=== PATIENT | male | born 1950 | race Caucasian/White ===

== ENCOUNTER → 2017-06-24 | Outpatient (CLI) | payer BC ==
[~2017-06-24] MED LIST: [UNRECOGNIZED DRUG - CODE] PO
[2017-06-24 12:04] LABS: BASO % 0.2 %; BASO ABS # 0.02 K/uL (0-0.2); COMPLETE YES; EOS % 3.2 %; IG% 0.1 %; LYMPH % 36.5 %; LYMPH ABS # 3.07 K/uL (1.2-3.4); MEAN CELL VOLUME 88.4 fL (80-100); MEAN CORPUSCULAR HEMOGLOBIN 30.5 pg (25-34); MEAN CORPUSCULAR HGB CONC 34.5 g/dl (32-36); MEAN PLATELET VOLUME 11.5 fL (7.4-10.4); MONO % 11.1 %; NEUT % 48.9 %; PLATELET COUNT 192 K/uL (130-400); RED BLOOD COUNT 5.54 M/uL (4.7-6.1)
[2017-06-24 12:25] LABS: BLOOD UREA NITROGEN 10 mg/dl (7-18); CREATININE 0.65 mg/dl (0.60-1.40); GLUCOSE 126 mg/dl (70-99)
[2017-06-24 12:26] LABS: ALT/SGPT 26 U/L (12-78); BUN/CREATININE RATIO 15.8 (10-20); CALCIUM 9.1 mg/dl (8.5-10.1); CARBON DIOXIDE 26 mmol/L (21-32); CHLORIDE 109 mmol/L (98-107); POTASSIUM 3.9 mmol/L (3.5-5.1); SODIUM 141 mmol/L (136-145)
[2017-06-24 12:36] LABS: ALB/GLOB RATIO 1.1 (0.9-2); ALKALINE PHOSPHATASE 98 U/L (45-117); AST/SGOT 17 U/L (15-37); THYROID STIMULATING HORMONE 0.712 uIu/ml (0.300-4.500)
== END | disposition home or self-care (01) ==
LOC: C.LABBFT 10:14
PROVIDERS: ATTEND Internal Medicine
DX: R03.0 Elevated blood-pressure reading, without diagnosis of hypertension (principal)

== ENCOUNTER 2020-02-27 07:24 | Inpatient (IN) ==
--- NOTE | 2020-02-27 07:43 | Emergency Department Note ---
History of Present Illness General Chief complaint: Kidney Stone Stated complaint: KIDNEY STONE Time Seen by Provider: 02/27/20 07:31 History of Present Illness Maximum Pain Intensity: 2 This is a 69-year-old male with a past medical history significant for that of kidney stones as well as type 2 diabetes that presents to the emergency department via private vehicle with complaints of "kidney stone". Patient states that for the past 2 days he has had right-sided flank pain. This then seemed to dissipate and this morning he drank a lot of water and coffee and notes that he feels as though he has to urinate but only a few drops are able to be expressed. He states that he has had similar in the past with previous kidney stones. He has followed previously with Dr. Lerner of [facility] urology. He denies any current pain, fevers, chills or abdominal pain. He was hopeful that he would be able to pass the stone this morning with excessive hydration but unfortunate was able to do so. He does feel slightly uncomfortable secondary to the amount of fluids that he consumed and lack of urine output and rates his discomfort as a 2/10. No hematuria. Home Medications Home Medications Medication Instructions Recorded Confirmed Type blood-glucose meter #1 ea 05/28/19 10/19/19 Rx lancets 33 gauge #100 ea 05/28/19 10/19/19 Rx blood sugar diagnostic #200 ea 07/13/19 10/19/19 Rx glimepiride 2 mg tablet 2 mg PO QAM #90 tab 01/07/20 02/27/20 Rx metformin 1,000 mg PO BIDM 02/27/20 02/27/20 History propranolol 120 mg PO QAM 02/27/20 02/27/20 History Allergies Allergy/AdvReac Type Severity Reaction Status Date / Time No Known Allergies Allergy Unknown Verified 02/27/20 08:23 Past Med/Surg History Family History Father Kidney stone Other Diabetes Denies family history of Ovarian cancer Prostate cancer Breast cancer Colorectal cancer Social History Preferred Language: Chinese Communication Ability: Effective Visual Impairment: No Limitations Hearing Ability: Normal Virologist Required: No Beliefs That Will Affect Care: None marital status: Current Living Situation: Spouse current occupational status: retired Feels Safe at Home: Yes Smoking Status: Current every day smoker Tobacco Type: cigarettes ; Hx Alcohol Use: Yes Alcohol type: beer Hx Substance Use: No Physical Activity Frequency: 1-2 Times per Week Review of Systems A total of 10 systems reviewed and were otherwise negative Physical Exam Vital Signs Vital Signs - 24 hr 02/27/20 07:25 02/27/20 09:25 Temperature 36.9 C Temperature Source Oral Pulse Rate 95 H Pulse Rate [Finger] 89 Pulse Rhythm [Finger] Regular Pulse Strength [Finger] Normal Respiratory Rate 18 18 Respiratory Effort / Characteristics Non-Labored Non-Labored Spontaneous Respiratory Depth Normal Normal Respiratory Pattern Regular Blood Pressure 165/88 H Blood Pressure [Right Arm] 137/86 Blood Pressure Mean 113 Blood Pressure Mean [Right Arm] 103 Blood Pressure Position Sitting Blood Pressure Position [Right Arm] Lying Pulse Oximetry 96 98 Oxygen Delivery Method Room Air Room Air Sepsis Recent Fever Within 48 Hours No Sepsis New/Unexplained Change in Mental Status No Sepsis Action Taken by Nursing No Action Required VITAL SIGNS - Vital signs and nursing notes were reviewed. Stable and afebrile. GENERAL - 69-year-old male appearing his stated age who is in no acute distress. Communicates well with provider and answers questions appropriately. SKIN - Without rashes. No meningeal or petechial rash. HEAD - NC/AT. EYES - PERRL with EOMI bilaterally. Sclera anicteric. EARS - No deformities of external structures noted on gross examination bilaterally. NOSE - Midline and without cyanosis. No epistaxis or purulent drainage noted. MOUTH/OROPHARYNX - Without perioral cyanosis. NECK - Neck with FROM. LUNGS - Chest wall symmetric without accessory muscle use, intercostals retractions, or central cyanosis. Normal vesicular breath sounds CTA B/L. No wheezes, rales, or rhonchi appreciated. CARDIAC - RRR with S1/S2. No murmur, rubs, or gallops appreciated. ABDOMEN - Abdominal contour normal without pulsations or visible masses. BS normoactive all four quadrants. No tenderness, palpable masses, hepatosplenomegaly, or ascites noted. EXTREMITIES - No clubbing or peripheral cyanosis. No pretibial edema present. +5/5 strength noted in UE/LE bilaterally. NEUROLOGIC - Cranial nerves II through XII grossly intact. Sensory intact to light touch throughout. PSYCH - A&O, and cooperates fully with examiner. Pt is very pleasant and interacts well with examiner. Course Administered Medications Sodium Chloride (Nss 1000ml) 1,000 mls @ 150 mls/hr IV .[id number] [facility] Stop: 03/28/20 13:09 Last Admin: 02/27/20 13:27 Dose: 150 mls/hr Documented by: [id number] Insulin Aspart (Novolog Flexpen) 0 units SC ACHS JOHN Stop: 03/28/20 13:29 Last Admin: 02/27/20 14:37 Dose: Not Given Documented by: [id number] Cosigned by: [id number] Discontinued Medications Heparin Sodium (Porcine) (Heparin Sodium (Porcine)) 5,000 units SQ ONE ONE Stop: 02/27/20 13:46 Last Admin: 02/27/20 14:36 Dose: 5,000 units Documented by: [id number] Cosigned by: [id number] Medical Decision Making Laboratory Data Result diagrams: 02/27/20 07:46 02/27/20 07:46 Lab Results 02/27/20 02/27/20 02/27/20 Range/Units 07:46 07:46 08:06 WBC 9.90 (4.8-10.8) K/uL RBC 5.66 (4.7-6.1) M/uL Hgb 17.3 (14.0-18.0) g/dL Hct 51.0 (42-52) % MCV 90.1 (80-100) fL MCH 30.6 (25-34) pg MCHC 33.9 (32-36) g/dL RDW Std Deviation 47.7 H (36.4-46.3) fL RDW Coeff of Taylor 14.4 (11.5-14.5) % Plt Count 182 (130-400) K/uL MPV 11.1 H (7.4-10.4) fL Immature Gran % (Auto) 0.3 % Neut % (Auto) 73.9 % Lymph % (Auto) 16.0 % [place] % (Auto) 7.9 % Eos % (Auto) 1.6 % Baso % (Auto) 0.3 % Neut # (Auto) 7.32 H (1.4-6.5) K/uL Lymph # (Auto) 1.58 (1.2-3.4) K/uL [place] # (Auto) 0.78 H (0.11-0.59) K/uL Eos # (Auto) 0.16 (0-0.5) K/uL Baso # (Auto) 0.03 (0-0.2) K/uL Immature Gran # (Auto) 0.03 H (0.00-0.02) K/uL Sodium 140 (136-145) mmol/L Potassium 4.0 (3.5-5.1) mmol/L Chloride 107 (98-107) mmol/L Carbon Dioxide 25 (21-32) mmol/L Anion Gap 8.0 (3-11) BUN 13 (7-18) mg/dl Creatinine 0.94 (0.6-1.4) mg/dl Est Cr Clr Drug Dosing 98.1 ml/min Est GFR ( Amer) 96.2 Est GFR (Non-Af Amer) 83.0 BUN/Creatinine Ratio 13.4 (10-20) Glucose 142 H (70-99) mg/dl Calcium 9.8 (8.5-10.1) mg/dl Total Bilirubin 0.5 (0.2-1) mg/dl AST 8 L (15-37) U/L ALT 21 (12-78) U/L Alkaline Phosphatase 103 (45-117) U/L Total Protein 7.2 (6.4-8.2) gm/dl Albumin 3.4 (3.4-5.0) gm/dl Globulin 3.8 (2.5-4.0) gm/dl Albumin/Globulin Ratio 0.9 (0.9-2) Urine Color Yellow Urine Appearance Clear (Clear) Urine pH 5.5 (4.5-7.5) Ur Specific [place] 1.017 (1.000-1.030) Urine Protein Negative (Negative) Urine Glucose (UA) Negative (Negative) Urine Ketones Negative (Negative) Urine Blood 3+ H (Negative) Urine Nitrite Negative (Negative) Urine Bilirubin Negative (Negative) Urine Urobilinogen Negative (Negative) Ur Leukocyte Esterase Trace H (Negative) Urine WBC (Auto) 1-5 (0-5) /hpf Urine RBC (Auto) >30 H (0-4) /hpf U Hyaline Cast (Auto) 1-5 (0-5) /lpf U Epithel Cells (Auto) 5-10 H (0-5) /lpf Urine Bacteria (Auto) Negative (Negative) Imaging Data Radiologist's Impression: CT OF THE ABDOMEN AND PELVIS WITHOUT CONTRAST CLINICAL HISTORY: R flank pain, urinary urgency, minimal output COMPARISON STUDY: CT of the abdomen and pelvis May 04, 2014. TECHNIQUE: Axial images of the abdomen and pelvis were obtained without IV contrast. Images were reviewed in the axial, sagittal, and coronal planes. Automated exposure control was utilized for the study. A dose lowering technique was utilized adhering to the principles of ALARA. FINDINGS: Lung bases are unremarkable. A 1.2 x 1 cm right ureteropelvic junction calculus is noted. There is a additional 4 mm right ureteropelvic junction calculus located just distally. Moderate right hydronephrosis is noted. Numerous bilateral renal calculi are noted. The largest is a 1.3 cm calculus within lower pole of the left kidney. There are no left ureteral calculi. There is no left hydronephrosis. Note is made of a 3.2 cm lesion arising from the upper pole the right kidney on image 245 of [phone]. Peripherally, this lesion measures above water attenuation and is highly suggestive of a solid renal lesion. Additional bilateral renal lesions measure water attenuation and favor cysts, including a lesion which contains calcifications within the midpole of the right kidney. This favors a cyst. Evaluation of the remainder of the abdomen and pelvis is suboptimal as unenhanced examination. Subcentimeter hepatic lesions favor cysts. There are gallstones within the gallbladder without evidence for acute cholecystitis. The spleen, adrenal glands and pancreas are unremarkable. There is no biliary or pancreatic ductal dilatation. There is no evidence for a bowel obstruction. No lymphadenopathy is present. The appendix is normal. There are no suspicious osseous lesions. IMPRESSION: 1. 1.2 x 1 cm right ureteropelvic junction calculus which results in moderate right hydronephrosis. Adjacent 4 mm calculus. Extensive bilateral nephrolithiasis. 2. 3.2 cm lesion arising from the upper pole of the right kidney. This is suboptimally assessed on this unenhanced exam but is highly suggestive of renal cell carcinoma. Nonemergent renal protocol MRI is recommended. Findings discussed with Elbert Cuevas at time of dictation. ACT 112: Positive. There are findings on this exam that require communication between the performing entity and the patient following Patient Test Result Information Act ([place] Act 112) guidelines. Electronically signed by: Jonathan Oconnell M.D. 02/27/2020 9:04 AM MDM Narrative Patient was seen and evaluated as above in room A02. Review was performed of nursing notes and vital signs. I did review pertinent previous visits and patient history. After obtaining a thorough history and physical examination the above work up was performed. He presents to us today with what he believes is a kidney stone. He states that he had right-sided flank pain x2 days which is typical with his kidney stones and then felt as though it may be entered the bladder but is now obstructing urine flowing from the bladder as he notes that he was well-hydrated this morning but only is able to produce a very small amount of urine. He feels mild discomfort in the bladder region secondary to the hydration status with inability to completely empty her bladder. He states that he has passed about a dozen kidney stones in the past 5 years. He denies any fevers or chills. He is hemodynamically stable here. Patient did undergo bladder scanning as I was at the bedside observing this and at no point did register anything greater than about 30 mL's. Patient notes he did just urinate prior to the scan however he felt it was an incomplete emptying of the bladder. Decision was made to pursue with a CT scan given the presentation and the patient's history. CBC does not reveal any leukocytosis or anemia. No evidence of kidney or liver failure emergently. Urinalysis does not suggest infection. Given the size of the stone, hydronephrosis, it was felt that urology consult was warranted. I spoke with Dina Pearce and she discussed this with Dr. Valerio of urology. Recommendation was inpatient management which patient was amenable to. Given his other medical comorbidities I did discuss the case with the hospitalist service. Please refer to further documentation regarding his stay. Patient declined pain medication here in the department. In regard to the abnormal CT scan finding reviewing the 3.2 cm lesion I did inform the patient upon this and provided him a copy of the CT scan report. I will also note that he will be evaluated by urology team while here in the hospital. Case was discussed with the attending physician. I attest that I have personally reviewed the patient medication list. I attest that I have reviewed the patient's blood pressure and it was found to be elevated likely secondary to presentation here today. GCS: 15 In the evaluation and treatment of this patient the following differential diagnoses were entertained: [] Impression & Plan Ureteropelvic junction (UPJ) obstruction, right, Hydronephrosis, Renal lesion Discharge Plan Visit Data *Final* Discharge Date/Time: 02/27/20 12:46 Chief Complaint: Kidney Stone Stated Complaint: KIDNEY STONE ED Provider: Shree Prasad ED Midlevel Provider: Elbert Cuevas Discharge Problem: Ureteropelvic junction (UPJ) obstruction, right, Hydronephrosis, Renal lesion Patient Disposition: Admitted As Inpatient Condition: Good Discharge Instructions Interventions: ED Discharge Assessment Last Done: 02/27/20 12:46
[2020-02-27 07:56] LABS: Basophils # (auto) 0.03 K/uL (0-0.2); Basophils % (auto) 0.3 %; Eosinophils # (auto) 0.16 K/uL (0-0.5); Eosinophils % (auto) 1.6 %; Hemoglobin 17.3 g/dL (14.0-18.0); Immature Granulocytes # (auto) 0.03 K/uL (0.00-0.02); Immature Granulocytes % (auto) 0.3 %; Lymphocytes # (auto) 1.58 K/uL (1.2-3.4); Mean Corpuscular Hemoglobin 30.6 pg (25-34); Mean Corpuscular Hgb Conc 33.9 g/dL (32-36); Mean Corpuscular Volume 90.1 fL (80-100); Mean Platelet Volume 11.1 fL (7.4-10.4); Monocytes # (auto) 0.78 K/uL (0.11-0.59); Monocytes % (auto) 7.9 %; Neutrophils # (auto) 7.32 K/uL (1.4-6.5); Neutrophils % (auto) 73.9 %; Platelet Count 182 K/uL (130-400); RDW Coefficient of Variation 14.4 % (11.5-14.5); RDW Standard Deviation 47.7 fL (36.4-46.3); Red Blood Count 5.66 M/uL (4.7-6.1)
[2020-02-27 08:37] LABS: Albumin Level 3.4 gm/dl (3.4-5.0); BUN Creatinine Ratio 13.4 (10-20); Calcium 9.8 mg/dl (8.5-10.1); Creatinine Clr Calc Pharmacy 98.1 ml/min; Est GFR (African American) 96.2
[2020-02-27 08:40] LABS: Albumin Globulin Ratio 0.9 (0.9-2); Bilirubin,Total 0.5 mg/dl (0.2-1); Globulin 3.8 gm/dl (2.5-4.0); Total Protein 7.2 gm/dl (6.4-8.2)
[2020-02-27 08:53] LABS: Appearance Urine Clear (Clear); Bacteria Urine Automated Negative (Negative); Bilirubin Urine Negative (Negative); Blood Urine 3+ (Negative); Color Urine Yellow; Glucose Urine UA Negative (Negative); Ketones Urine Negative (Negative); Leukocyte Esterase Urine Trace (Negative); Nitrite Urine Negative (Negative); Protein Urine Negative (Negative); RBC Urine Automated >30 /hpf (0-4); Specific Gravity Urine 1.017 (1.000-1.030); Urobilinogen Urine Negative (Negative); pH Urine 5.5 (4.5-7.5)
--- NOTE | 2020-02-27 09:05 | CT Scan Report ---
CT OF THE ABDOMEN AND PELVIS WITHOUT CONTRAST CLINICAL HISTORY: R flank pain, urinary urgency, minimal output COMPARISON STUDY: CT of the abdomen and pelvis May 04, 2014. TECHNIQUE: Axial images of the abdomen and pelvis were obtained without IV contrast. Images were revi ewed in the axial, sagittal, and coronal planes. Automated exposure control was utilized for the darleen dy. A dose lowering technique was utilized adhering to the principles of ALARA. FINDINGS: Lung bases are unremarkable. A 1.2 x 1 cm right ureteropelvic junction calculus is noted. T here is a additional 4 mm right ureteropelvic junction calculus located just distally. Moderate right hydronephrosis is noted. Numerous bilateral renal calculi are noted. The largest is a 1.3 cm calculu s within lower pole of the left kidney. There are no left ureteral calculi. There is no left hydronep hrosis. Note is made of a 3.2 cm lesion arising from the upper pole the right kidney on image 245 of 596. Peripherally, this lesion measures above water attenuation and is highly suggestive of a solid r enal lesion. Additional bilateral renal lesions measure water attenuation and favor cysts, including a lesion which contains calcifications within the midpole of the right kidney. This favors a cyst. Ev aluation of the remainder of the abdomen and pelvis is suboptimal as unenhanced examination. Subcenti meter hepatic lesions favor cysts. There are gallstones within the gallbladder without evidence for a cute cholecystitis. The spleen, adrenal glands and pancreas are unremarkable. There is no biliary or pancreatic ductal dilatation. There is no evidence for a bowel obstruction. No lymphadenopathy is pre sent. The appendix is normal. There are no suspicious osseous lesions. IMPRESSION: 1. 1.2 x 1 cm right ureteropelvic junction calculus which results in moderate right hydronephrosis. A djacent 4 mm calculus. Extensive bilateral nephrolithiasis. 2. 3.2 cm lesion arising from the upper pole of the right kidney. This is suboptimally assessed on th is unenhanced exam but is highly suggestive of renal cell carcinoma. Nonemergent renal protocol MRI i s recommended. Findings discussed with Elbert Cuevas at time of dictation. ACT 112: Positive. There are findings on this exam that require communication between the performing entity and the patient following Patient Test Result Information Act ([place] Act 112) guidelines. Electronically signed by: Jonathan Oconnell M.D. 02/27/2020 9:04 AM
--- NOTE | 2020-02-27 11:22 | History & Physical Report ---
Date of Service February 27, 2020 Assessment & Plan (1) Renal stone: Patient has a right UPJ stone 10 x 12 mm. Patient is no evidence of renal dysfunction the creatinine is 0.94. Urology has been consulted. Pain medication with opiates and nonsteroidals will be given IV fluids will be given and straining of urine to be recommended. (2) Renal mass: Renal mass on the right side. Patient studies will he was aware of a renal cyst on the right side. Urine cytology will be sent urology consult be undertaken and renal dedicated MRI is ordered (3) Diabetes mellitus type 2, uncontrolled: Patient typically takes glimepiride and metformin. Metformin is held insulin sliding scale is utilized and carbohydrate conservative diet ordered (4) Benign essential hypertension: Patient remains on propranolol XL 120 a day (5) DVT prophylaxis: For DVT prophylaxis the patient given 1 dose of heparin this evening then will be held given that he likely may have renal intervention. If he is here for prolonged stay DVT prophylaxis and chemical formalin need to be reordered. He will additionally be ordered SCDs History of Present Illness Primary Care Provider: Rex Stewart MD 69 M with a past medical history significant for multiple kidney stones as well as recently diagnosed (follow 2019) type 2 diabetes that presents to the emergency department via private vehicle with complaints of "kidney stone". Patient states that for the past 2 days he has had right-sided flank pain. Subsequently the patient drank a lot of water and coffee and feels the stone has moved. He feels in his bladder however on imaging is suggested at the UPJ and 10 x 12 mm. He has followed previously with Dr. Lerner of [facility] urology. And in the past he also has been told he had a right renal cyst. He currently denies any current pain, fevers, chills or abdominal pain. He was hopeful that he would be able to pass the stone this morning with excessive hydration but unfortunate was able to do so. He does feel slightly uncomfortable secondary to the amount of fluids that he consumed and feeling that he cannot empty his bladder completely. Patient denies having hematuria. Patient was not informed of the incidental renal mass seen in the right kidney on CT scan measuring 3.2 cm with recommendation for further imaging which is been ordered Allergies Allergy/AdvReac Type Severity Reaction Status Date / Time No Known Allergies Allergy Unknown Verified 02/27/20 08:23 Home Medications Home Medications Medication Instructions Recorded Confirmed Type blood-glucose meter #1 ea 05/28/19 10/19/19 Rx lancets 33 gauge #100 ea 05/28/19 10/19/19 Rx blood sugar diagnostic #200 ea 07/13/19 10/19/19 Rx glimepiride 2 mg tablet 2 mg PO QAM #90 tab 01/07/20 02/27/20 Rx metformin 1,000 mg PO BIDM 02/27/20 02/27/20 History propranolol 120 mg PO QAM 02/27/20 02/27/20 History Past Med/Surg History Family History Father Kidney stone Other Diabetes Denies family history of Ovarian cancer Prostate cancer Breast cancer Colorectal cancer Social History Preferred Language: Zimbabwean Visual Impairment: No Limitations Hearing Ability: Normal marital status: Current Living Situation: Spouse current occupational status: retired Feels Safe at Home: Yes Smoking Status: Current every day smoker Hx Alcohol Use: Yes Hx Substance Use: No Physical Activity Frequency: 1-2 Times per Week Review of Systems Review of Systems: Mild distress and fatigue no headache, blurry or double vision no speech or swallowing issues no chest pain, pressure or palpitations no shortness of breath, cough or wheezes Right-sided abdominal pain, without nausea or vomiting, diarrhea or constipation Urinary frequency but no hematuria no focal joint pain or swelling Right-sided back pain/CVA tenderness no evidence of radicular pain no bruising, bleeding or rashes no focal signs of weakness or numbness or altered sensation no complaints or anxiety or depression. Physical Exam Physical Exam: The patient appeared well nourished and normally developed. His exam is without remark Vital signs as documented. Head exam is normocephalic atraumatic no scleral icterus Neck is without JVD, thyromegaly, or carotid bruits. Lungs are clear to auscultation, no focal loss of breath sounds Cardiac exam, Rhythm is regular.. No murmurs, rubs or gallops. Abdominal exam reveals normal bowel sounds, soft non tender, no masses Extremities are nonedematous and both pedal pulses are normal. Neurologic exam is alert and oriented, no focal loss of strength or sensation Skin is without bruises or rashes Psychologically is without concerns for anxiety or depression Results & Data Results & Data ([facility]) Vital Signs (Past 12 Hours) Vital Signs Temp Pulse Pulse Resp BP BP Pulse Ox 02/27/20 09:25 89 18 137/86 98 02/27/20 07:25 98.4 F 95 H 18 165/[address] 02/27/20, IMPRESSION: 1. 1.2 x 1 cm right ureteropelvic junction calculus which results in moderate right hydronephrosis. Adjacent 4 mm calculus. Extensive bilateral nephrolithiasis. 2. 3.2 cm lesion arising from the upper pole of the right kidney. This is sub optimally assessed on this unenhanced exam but is highly suggestive of renal cell carcinoma. Nonemergent renal protocol MRI is recommended. Code Status & VTE Plan VTE Prophylaxis Plan VTE Prophylaxis will be ordered: Yes PG Care Time/CCT Total # of Minutes Spent Total Time Spent with Patient: Total time spent is greater than 50% in coordination of care (as documented) at patient's floor/unit and/or counseling patient: Coding Level of Care Code 47752 Initial Inpt Care Lvl 2 Diagnoses Renal stone N20.0 Renal mass N28.89 Diabetes mellitus type 2, uncontrolled E11.65 Benign essential hypertension I10 DVT prophylaxis Z29.9
[2020-02-27] MEDS ORDERED: DEXTROSE 50% 50 ML SYRINGE IV PRN (13:10)
[2020-02-27] MEDS ORDERED: GLUCAGON FOR INJ 1 MG VIAL SQ PRN (13:10)
[2020-02-27] MEDS ORDERED: GLUCOSE 10 TABS/TUBE PO PRN (13:10)
[2020-02-27] MEDS ORDERED: MoRPHine SULFATE 2 MG/ML CARP IV PRN (13:10)
[2020-02-27] MEDS ORDERED: GLUCOSE 40% GEL 15 GM TUBE PO PRN (13:10)
[2020-02-27] MEDS ORDERED: ACETAMINOPHEN 325 MG TAB PO PRN (13:10)
[2020-02-27] MEDS ORDERED: ONDANSETRON INJ 2 MG/ML 2 ML VIAL IV PRN (13:10)
[2020-02-27] MEDS ORDERED: MoRPHine SULFATE 4 MG/ML 1 ML CARP\\VIAL IV PRN (13:10)
[2020-02-27] MEDS ORDERED: KETOROLAC TROMETHAMINE 15 MG/ML VIAL IV PRN (13:10)
[2020-02-27] MEDS ORDERED: CARBOHYDRATES FOR HYPOGLYCEMIA PO PRN (13:10)
[2020-02-27] MEDS ORDERED: PHARMACY GLYCEMIC MGMT CONSULT PRN (13:18)
[2020-02-27] MEDS: SODIUM CHLORIDE 0.9% 1000ML 1,000 ML IV SCH ×2 (13:27→20:00)
[2020-02-27] MEDS ORDERED: HEPARIN SOD 5,000 UNIT/0.5 ML VIAL SQ ONE (13:45)
--- NOTE | 2020-02-27 14:07 | Pharmacy Report ---
Glycemic Control Consultation - Date of Service February 27, 2020 - Scope Scope: Glycemic Pharmacist consulted for glycemic control and to write orders per [facility] inpatient glycemic control protocol. - Objective Weight: 107.3 kg Accuchecks BSG (last 24hrs): 02/27/20 02/27/20 07:46 13:07 Glucose 142 H POC Glucose 96 Laboratory Data (last 24hrs): 02/27/20 07:46 Potassium 4.0 Carbon Dioxide 25 Anion Gap 8.0 Creatinine 0.94 Est Cr Clr Drug Dosing 98.1 - Recent Pertinent Medications Outpatient Anti-diabetic Regimen: * Metformin 1000 mg PO BIDM * Glimepiride 2 mg PO daily * A1c = 6.5 % (09/25/19) - A1c to be rechecked tomorrow morning - Assessment & Plan Assessment & Plan: ASSESSMENT: * RW is a 69 year old male admitted to [facility] with chief complaint of kidney stone * Urology consulted, made NPO after midnight for possible surgical intervention tomorrow * BSGs so far today ranging 96-142 mg/dL * Will utilize conservative Novolog orders to start PLAN FOR INPATIENT GLYCEMIC CONTROL: * Holding outpatient oral diabetes medications (glimepiride and metformin) * Basal insulin * Hold off on basal for now - reassess need tomorrow morning * Bolus insulin * NovoLog per scale ACHS or Q6hrs while NPO * Goal Range: Low 110 mg/dL - High 140 mg/dL * Correction Factor: 40 mg/dL/unit * Nutritional / Prandial insulin per carb ratio of 1 unit per 15 grams CHO consumed * Please note that the plan above was derived based on current level of insulin resistance and hospital stress. These recommendations are appropriate for inpatient admission only. Plan of care upon discharge will need to be reassessed to avoid potential outpatient hypo/hyperglycemia. Thank you.
[2020-02-27] MEDS: INSULIN ASPART 100 UNITS/ML 3 ML PEN SC SCH ×3 (14:37→22:24)
[2020-02-28] MEDS ORDERED: GADOBUTROL 65ML VIAL IV PRN (00:20)
[2020-02-28] MEDS ORDERED: Nursing to Pharmacy Communication SCH ×2 (03:30→12:00)
[2020-02-28] MEDS: SODIUM CHLORIDE 0.9% 1000ML 1,000 ML IV SCH ×2 (03:31→11:56)
[2020-02-28] MEDS: INSULIN ASPART 100 UNITS/ML 3 ML PEN SC SCH ×2 (06:09→12:13)
[2020-02-28 06:39] LABS: BUN Creatinine Ratio 14.9 (10-20); Calcium 8.4 mg/dl (8.5-10.1); Creatinine Clr Calc Pharmacy 137.7 ml/min; Est GFR (African American) 114.4; Est GFR (Non-African American) 98.7; Potassium 3.7 mmol/L (3.5-5.1)
--- NOTE | 2020-02-28 07:40 | Urology Consultation ---
Date of Consultation February 28, 2020 Assessment & Plan (1) Ureteropelvic junction (UPJ) obstruction, right: Risks and benefits discussed at length for procedure. These include bleeding, infection, injury to surrounding tissues or organs, and risks associated with anesthesia. Patient states understanding and agrees to proceed. Will sign consent and schedule. We will plan for cystoscopy with right stent placement to be done under sedation today. Patient to maintain n.p.o. status. Continue with hydration and supportive care. Will likely need some sort of intervention on stone in the future. (2) Hydronephrosis: (3) Renal lesion: History of Present Illness Attending Physician: Rosita Barakat MD History of Present Illness New consultation for patient with stone, discomfort, obstruction, and ill feelings. Patient developed sudden onset of pain into flank going down and radiating into groin and back in waves comes and goes. Can be severe at times. Also incidentally discovered to have a right sided renal mass. Right stone causing hydronephrosis. On imaging which was reviewed interpreted by myself has a fairly large stone at the UPJ on the right. 1.2 cm Discussed and reviewed patient's family history for any history of stone disease. Also, discussed patient's medical surgery history especially related to any history of urinary issues or stone disease. Patient was admitted and is undergoing observation. Allergies Allergy/AdvReac Type Severity Reaction Status Date / Time No Known Allergies Allergy Unknown Verified 02/27/20 08:23 Home Medications Home Medications Medication Instructions Recorded Confirmed Type blood-glucose meter #1 ea 05/28/19 10/19/19 Rx lancets 33 gauge #100 ea 05/28/19 10/19/19 Rx blood sugar diagnostic #200 ea 07/13/19 10/19/19 Rx glimepiride 2 mg tablet 2 mg PO QAM #90 tab 01/07/20 02/27/20 Rx metformin 1,000 mg PO BIDM 02/27/20 02/27/20 History propranolol 120 mg PO QAM 02/27/20 02/27/20 History Patient History Medical History Left ureteral calculus (Inactive) Surgical History History of ankle surgery Family History Father Kidney stone Other Diabetes Denies family history of Ovarian cancer Prostate cancer Breast cancer Colorectal cancer Social History Preferred Language: Albanian Communication Ability: Effective Visual Impairment: No Limitations Hearing Ability: Normal Fusing Machine Tender Required: No Beliefs That Will Affect Care: None marital status: Current Living Situation: Spouse current occupational status: retired Feels Safe at Home: Yes Smoking Status: Current every day smoker Tobacco Type: cigarettes ; Hx Alcohol Use: Yes Alcohol type: beer Hx Substance Use: No Physical Activity Frequency: 1-2 Times per Week Review of Systems Review of Systems: All systems reviewed & are unremarkable except as noted in HPI & below Physical Exam Physical Exam: General: Alert and oriented x 3 in no acute distress. Patient is well nourished and well kept. HEENT: Normocephalic Atraumatic. Inspection normal. Cranial Nerves 2-12 Grossly intact. Nares are clear. Neck is supple. Normal inspection of face. Normal inspection of neck. Neurologic: No deficits on inspection. Baseline for motor function and sensory. Psychologic: Normal affect. Respiratory: Nonlabored. No use of accessory muscles. No tachypnea or dyspnea. Cardiovascular: No tachycardia Skin: Temple and Dry. No rashes or visible lesions. Extremities: Moving without issues. No motor deficits on inspection Lymphatics: No edema Abdomen: Soft Non-distended. No acites. No rebound or guarding. Results & Data Vital Signs (Past 12 Hours) Vital Signs Temp Pulse Pulse Resp BP Pulse Ox 02/28/20 07:14 36.6 C 74 16 159/93 H 94 02/28/20 01:09 74 123/73 02/28/20 00:43 37 C 82 20 159/105 H 92 PG Care Time/CCT Total # of Minutes Spent Total Time Spent with Patient: Total time spent is greater than 50% in coordination of care (as documented) at patient's floor/unit and/or counseling patient: Coding Level of Care Code 95319 Inpt Consult Level 5 Diagnoses Ureteropelvic junction (UPJ) obstruction, right N13.5 Hydronephrosis N13.30 Renal lesion N28.9
[2020-02-28 07:56] LABS: Estimated Average Glucose 117 mg/dl; Hemoglobin A1C 5.7 % (4.5-5.6)
--- NOTE | 2020-02-28 08:55 | Magnetic Resonance Report ---
MRI OF THE ABDOMEN COMBO CLINICAL HISTORY: Follow-up right renal lesion. COMPARISON STUDY: Abdominal CT dated 02/27/2020 and 07/04/2013. TECHNIQUE: MRI of the abdomen is performed transverse T1 and T2-weighted sequences in the axial and c oronal planes. Contrast enhanced sequences were acquired following the IV administration of 10.7 cc of Gadavist. Subtraction imaging was utilized. FINDINGS: Lower chest: No pleural effusion is identified. The heart is normal in size. Liver: The liver is normal in size, contour, and signal intensity. No intrahepatic biliary ductal dil atation is seen. The hepatic veins and portal veins are patent. There are scattered subcentimeter hep atic cysts. Gallbladder: Unremarkable. Spleen: Normal in size and signal intensity. Pancreas: Unremarkable. Adrenal glands: A 1.4 cm left adrenal nodule is indeterminant but unchanged dating back to 2012. The right adrenal gland is normal in appearance. Kidneys: The kidneys are normal in size. There is moderate right hydronephrosis secondary to obstruct ing proximal ureteral calculi. No hydronephrosis is seen on the left. The kidneys enhance symmetrical ly. There is a 3.6 x 3.4 x 3.4 cm complex enhancing mass lesion arising from the upper pole of the ri ght kidney. No additional enhancing cortical lesion is identified. A minimally complex bilobed cyst i n the posterior interpolar left kidney measures up to 3 cm. This contains a calcified septation and h as been present dating back to 2012. Numerous additional smaller simple cysts are seen bilaterally. Abdominal aorta: Normal in course and caliber noting moderate atherosclerotic irregularity Bowel: Visualized portions of the small bowel and colon show no evidence of obstruction. Peritoneum: There is no abdominal ascites. Lymphadenopathy: None. Skeletal structures: Visualized skeletal structures times are normal marrow signal intensity. IMPRESSION: 1. There is a 3.6 cm complex enhancing mass lesion arising from the upper pole of the right kidney. T his represents a significant change from studies dating back to 2012 and renal cell carcinoma is the diagnosis of exclusion. Follow-up with urology is recommended. 2. A minimally complex bilobed cyst in the posterior interpolar right kidney contains a thick calcifi ed septation. This has been present dating back to 2012 and is of low suspicion. Attention at follow- up is recommended. 3. Additional simple cysts are seen bilaterally. 4. There is moderate right hydronephrosis secondary to proximal obstructing ureteral calculi. 5. No retroperitoneal adenopathy is seen. 6. Additional findings as above. ACT 112: Negative or not required by law. Electronically signed by: Samir Delgado M.D. 02/28/2020 8:54 AM
[2020-02-28] MEDS ORDERED: PROPRANOLOL HCL 60 MG LA CAP PO SCH (09:00)
[2020-02-28] MEDS ORDERED: GLIMEPIRIDE 2 MG TAB PO SCH (09:00)
[2020-02-28] MEDS ORDERED: ePHEDrine sulfate 50 MG/ML AMP IV PRN (09:09)
[2020-02-28] MEDS ORDERED: fentaNYL citrate 100 MCG/2 ML VIAL IV PRN (09:09)
[2020-02-28] MEDS ORDERED: ONDANSETRON INJ 2 MG/ML 2 ML VIAL IV PRN (09:09)
[2020-02-28] MEDS ORDERED: HYDROmorphone INJ 2 MG/ML SYR/VIAL IV PRN (09:09)
[2020-02-28] MEDS ORDERED: ATROPINE SULFATE 0.1 MG/ML 10ML SYR IV PRN (09:09)
[2020-02-28] MEDS ORDERED: PROMETHAZINE HCL 12.5 MG in SODIUM CHLORIDE 0.9% 50 ML IV PRN (09:09)
--- NOTE | 2020-02-28 09:09 | Anesthesiology Consultation ---
Date of Service February 28, 2020 Assessment & Plan ASA ASA2 Proposed Anesthesia Anesthesia Type: MAC Risk / Benefits Reviewed With: PT / POA / Parent / Guardian, Accepts Plan and Informed Consent Obtained History Surgery Operation Date: 02/28/20 09:15 Proposed Procedures p Cystoscopy, Right Stent Insertion - Denis Valerio, DO Height/Weight Height: 6 ft 2 in Weight: 107.3 kg Allergies Allergy/AdvReac Type Severity Reaction Status Date / Time No Known Allergies Allergy Unknown Verified 02/27/20 08:23 Medications Home Medications Medication Instructions Recorded Confirmed Last Taken blood-glucose meter #1 ea 05/28/19 10/19/19 Unknown lancets 33 gauge #100 ea 05/28/19 10/19/19 Unknown blood sugar diagnostic #200 ea 07/13/19 10/19/19 Unknown glimepiride 2 mg tablet 2 mg PO QAM #90 tab 01/07/20 02/27/20 02/27/20 metformin 1,000 mg PO BIDM 02/27/20 02/27/20 02/27/20 propranolol 120 mg PO QAM 02/27/20 02/27/20 02/27/20 Active Medications Generic Name Dose Route Start Last Admin Trade Name Freq PRN Reason Stop Dose Admin Gadobutrol 10.7 ml 02/28/20 00:20 02/28/20 00:03 Gadavist 65ml IV 03/03/20 00:19 10.7 ml ONCE PRN Administration Interaction Checking Sodium Chloride 1,000 mls @ 150 mls/hr 02/27/20 13:10 02/28/20 03:31 Nss 1000ml IV 03/28/20 13:09 150 mls/hr .[id number] JOHN Administration Insulin Aspart 0 units 02/28/20 06:00 02/28/20 06:09 Novolog Flexpen SC 03/29/20 05:59 Not Given Q6 JOHN Propranolol HCl 120 mg 02/28/20 09:00 02/28/20 08:14 Inderal La PO 03/29/20 08:59 120 mg QAM JOHN Administration NPO Date Last Intake of Fluids: 02/28/20 Time Last Intake of Fluids: 00:00 Date Last Intake of Solids: 02/28/20 Time Last Intake of Solids: 00:00 Past Medical History Medical History Left ureteral calculus (Inactive) Exercise / Class Metabolic Activity II 4-5 Yardwork/Stairs/Walk up hill Past Family History Family History Father Kidney stone Other Diabetes Denies family history of Ovarian cancer Prostate cancer Breast cancer Colorectal cancer Past Surgical History Surgical History History of ankle surgery Past Anesthesia History No Hx of Anesthesia Complications and No Family Hx of Anesthesia Complications History of PONV No Hx of PONV and No Hx of Motion Sickness Social History Smoking Status: Current every day smoker tobacco type: cigarettes Do You Dip or Chew Tobacco: No Hx Alcohol Use: Yes Alcohol type: beer alcohol intake frequency: a few times a month Hx Substance Use: No Review of Systems denies fever/cough/ colds/ chest pain/ SOB/ ESMER Constitutional: no fever and no chills Respiratory: no cough and no dyspnea denies ESMER Cardiovascular: no chest pain and no dyspnea on exertion Physical Exam Vital Signs Last Vital Signs Temp 36.6 C 02/28/20 07:14 Pulse 74 02/28/20 07:14 Resp 16 02/28/20 07:14 BP 159/93 H 02/28/20 07:14 Pulse Ox 94 02/28/20 07:14 ENMT Mouth: + edentulous; no TMJ abnormality and no dentition abnormality Thyromental Distance: > or= 3.5 Finger Breadths Mallampati Class: II Neck + facial hair; neck extension not limited Respiratory normal respiratory effort; no respiratory distress Auscultation: lungs clear to auscultation bilaterally Cardiovascular Rate/Rhythm: regular rate and regular rhythm Neurologic moves all extremities Psychiatric Orientation: alert and oriented x 3 Testing Laboratory Results 02/27/20 07:46 02/28/20 05:42 Hemoglobin A1c 5.7 % (4.5-5.6) H 02/28/20 05:42 Urine Color Yellow 02/27/20 08:06 Urine Appearance Clear (Clear) 02/27/20 08:06 Urine pH 5.5 (4.5-7.5) 02/27/20 08:06 Ur Specific [place] 1.017 (1.000-1.030) 02/27/20 08:06 Urine Protein Negative (Negative) 02/27/20 08:06 Urine Glucose (UA) Negative (Negative) 02/27/20 08:06 Urine Ketones Negative (Negative) 02/27/20 08:06 Urine Nitrite Negative (Negative) 02/27/20 08:06 Ur Leukocyte Esterase Trace (Negative) H 02/27/20 08:06 Urine WBC (Auto) 1-5 /hpf (0-5) 02/27/20 08:06 Urine RBC (Auto) >30 /hpf (0-4) H 02/27/20 08:06 U Hyaline Cast (Auto) 1-5 /lpf (0-5) 02/27/20 08:06 U Epithel Cells (Auto) 5-10 /lpf (0-5) H 02/27/20 08:06 Urine Bacteria (Auto) Negative (Negative) 02/27/20 08:06 02/28/20 05:48 POC Glucose 125 H
[2020-02-28] MEDS ORDERED: IOTHALAMATE MEGLUMINE II 17.2% 250 ML VIAL ONE (09:32)
[2020-02-28] MEDS ORDERED: MIDAZOLAM HCL 1 MG/ML 2ML VIAL ONE ×2 (09:33→10:11)
[2020-02-28] MEDS ORDERED: ONDANSETRON INJ 2 MG/ML 2 ML VIAL ONE (09:33)
[2020-02-28] MEDS ORDERED: fentaNYL citrate 100 MCG/2 ML VIAL ONE ×2 (09:33→09:55)
[2020-02-28] MEDS ORDERED: PROPOFOL IV EMULSION 10 MG/ML 20 ML VIAL IV ONE ×2 (09:33→09:34)
[2020-02-28] MEDS ORDERED: LIDOCAINE HCL 2% 2 ML VIAL/AMP(20MG/ML) INFIL ONE ×2 (09:33→09:34)
[2020-02-28] MEDS ORDERED: CEFAZOLIN 250 MG/ML 1 GM VIAL ONE (10:04)
--- NOTE | 2020-02-28 10:24 | Operative Report ---
[facility] Post Operative Report Pre & Post Diagnosis Operation Date: 02/28/20 09:15 Obstructing UPJ Stone on Right Same with large bladder stone at bladder neck I identified the patient and participated in the time-out.: Yes Procedure Operation Date: 02/28/20 09:15 <No data on this case meets the specified criteria> Cystoscopy with extraction and destruction of bladder stone approx 1.1 cm and right retrograde pyelogram, aspiration, and stent placement. Surgeon Denis Valerio, II, DO Director Life Sales None Estimated Blood Loss 1 Findings Consistent with Post-Op Diagnosis Stent placed in good position. approx 1.1 cm bladder stone at bladder neck/prostatic urethra with bleeding of prostatic varicosity/ Specimens Urine right kidney bladder stone Drains 6 Fr Multilength 18 fr coude Anesthesia Type MAC Complications none Disposition Disposition: Recovery Room Indications Patient with obstruction. Risks and benefits discussed at length. Description of Procedure Patient was consented and brought back to the operating room. Patient was placed under anesthesia in the supine position and moved to the dorsal lithotomy position. Patient was prepped and draped in the regular sterile fashion. A time out was completed. A 30degree Cystoscope was placed into the bladder and the entire bladder was examined. A stone was discovered in the prostatic urethra near the bladder neck with large bleeding varicosity around the stone. This was displaced into the bladder, destroyed, and removed. The bladder was then inspected. The UO's were identified. The UO was cannulized with a catheter, urine was aspirated, and a retrograde pyelogram was completed. A wire was then placed. With the wire in place, a 6 Fr Double J stent was placed. It was confirmed with fluoroscopy. With the stent in place, the bladder was emptied. The scope was removed. An 18 Fr Coude catheter was placed due to the prostatic varicosity bleeding. The patient was cleaned, aroused from anesthesia, and transferred to the pacu in stable condition having tolerated the procedure well with no complications. I was present and participated in all aspects of the procedure. The patient will be monitored in the PACU until transferred. I attest to the content of the Intraoperative Record and any orders documented therein. Any exceptions are noted below.
--- NOTE | 2020-02-28 10:42 | Anesthesiology Progress Note ---
Date of Service February 28, 2020 Anesthesia Post Procedure Vital Signs Vital Signs: Temp Pulse Pulse Pulse Resp BP BP 02/28/20 09:09 36.5 C 78 18 150/86 H 02/28/20 07:14 36.6 C 74 16 159/93 H 02/28/20 01:09 74 123/73 02/28/20 00:43 37 C 82 20 159/105 H 02/27/20 15:36 36.9 C 73 18 142/81 H 02/27/20 12:55 36.5 C 78 16 136/80 02/27/20 12:46 78 16 141/88 H 02/27/20 11:25 78 20 Pulse Ox 02/28/20 09:09 96 02/28/20 07:14 94 02/28/20 01:09 02/28/20 00:43 92 02/27/20 15:36 95 02/27/20 12:55 96 02/27/20 12:46 96 02/27/20 11:25 99 Pain Intensity Right Abdomen: Pain Intensity: 2 Transfer of Care Handoff Completed per policy Notes Mental Status: alert / awake / arousable and participated in evaluation Patient Amnestic to Procedure: Yes Nausea / Vomiting: adequately controlled Pain: adequately controlled Airway Patency, RR, SpO2: stable & adequate BP & HR: stable & adequate Hydration State: stable & adequate Anesthetic Complications: no major complications apparent and Pt Satisfied with anesthetic care
[2020-02-28] MEDS ORDERED: CEFAZOLIN 2000MG 2,000 MG/15 ML SYR IV ONE (10:43)
--- NOTE | 2020-02-28 10:44 | Hospitalist Progress Note ---
Date of Service February 28, 2020 Assessment & Plan Admission and Anticipated Discharge Date Admission Date: February 27, 2020 Results & Data Results & Data ([facility]) Vital Signs (Past 12 Hours) Vital Signs Temp Pulse Pulse Resp BP Pulse Ox 02/28/20 09:09 36.5 C 78 18 150/86 H 96 02/28/20 07:14 36.6 C 74 16 159/93 H 94 02/28/20 01:09 74 123/73 02/28/20 00:43 37 C 82 20 159/105 H 92 PG Care Time/CCT Total # of Minutes Spent Total Time Spent with Patient: Total time spent is greater than 50% in coordination of care (as documented) at patient's floor/unit and/or counseling patient: Coding
--- NOTE | 2020-02-28 11:04 | Fluoroscopy Report ---
FL retrograde includes kub HISTORY: RT CYSTO/STENT FLUOROSCOPY TIME: 22 seconds. FINDINGS: 8 fluoroscopic spot images of the abdomen and pelvis were submitted. Interval placement of a right ureteral stent. This appears in good position. There is also a Hernandez catheter in place. IMPRESSION: Fluoroscopy provided for right ureteral stent placement which appears in good position.. ACT 112: Negative or not required by law. Electronically signed by: Nas De Paz M.D. 02/28/2020 11:03 AM
--- NOTE | 2020-02-28 11:15 | Anesthesiology Progress Note ---
Date of Service February 28, 2020 Anesthesia Post Procedure Vital Signs Vital Signs: Temp Pulse Pulse Pulse Pulse Resp BP 02/28/20 10:50 36.5 C 75 15 02/28/20 10:40 75 16 02/28/20 10:31 36.1 C L 77 15 02/28/20 09:09 36.5 C 78 18 02/28/20 07:14 36.6 C 74 16 02/28/20 01:09 74 02/28/20 00:43 37 C 82 20 02/27/20 15:36 36.9 C 73 18 02/27/20 12:55 36.5 C 78 16 02/27/20 12:46 78 16 141/88 H 02/27/20 11:25 78 20 BP Pulse Ox 02/28/20 10:50 139/83 94 02/28/20 10:40 134/85 97 02/28/20 10:31 138/84 97 02/28/20 09:09 150/86 H 96 02/28/20 07:14 159/93 H 94 02/28/20 01:09 123/73 02/28/20 00:43 159/105 H 92 02/27/20 15:36 142/81 H 95 02/27/20 12:55 136/80 96 02/27/20 12:46 96 02/27/20 11:25 99 Pain Intensity Right Abdomen: Pain Intensity: 2 Transfer of Care Handoff Completed per policy Notes Mental Status: alert / awake / arousable and participated in evaluation Patient Amnestic to Procedure: Yes Nausea / Vomiting: adequately controlled Pain: adequately controlled Airway Patency, RR, SpO2: stable & adequate BP & HR: stable & adequate Hydration State: stable & adequate Anesthetic Complications: no major complications apparent and Pt Satisfied with anesthetic care
[2020-02-28] MEDS ORDERED: INSULIN ASPART 100 UNITS/ML 3 ML PEN SC SCH (12:30)
--- NOTE | 2020-02-28 14:57 | Discharge Summary ---
Date of Service February 28, 2020 Admission HPI Per Admitting Provider 69 M with a past medical history significant for multiple kidney stones as well as recently diagnosed (follow 2019) type 2 diabetes that presents to the emergency department via private vehicle with complaints of "kidney stone". Patient states that for the past 2 days he has had right-sided flank pain. Subsequently the patient drank a lot of water and coffee and feels the stone has moved. He feels in his bladder however on imaging is suggested at the UPJ and 10 x 12 mm. He has followed previously with Dr. Lerner of [facility] u[facility]. And in the past he also has been told he had a right renal cyst. He currently denies any current pain, fevers, chills or abdominal pain. He was hopeful that he would be able to pass the stone this morning with excessive hydration but unfortunate was able to do so. He does feel slightly uncomfortable secondary to the amount of fluids that he consumed and feeling that he cannot empty his bladder completely. Patient denies having hematuria. Patient was not informed of the incidental renal mass seen in the right kidney on CT scan measuring 3.2 cm with recommendation for further imaging which is been ordered Admission Exam Per Admitting Provider The patient appeared well nourished and normally developed. His exam is without remark Vital signs as documented. Head exam is normocephalic atraumatic no scleral icterus Neck is without JVD, thyromegaly, or carotid bruits. Lungs are clear to auscultation, no focal loss of breath sounds Cardiac exam, Rhythm is regular.. No murmurs, rubs or gallops. Abdominal exam reveals normal bowel sounds, soft non tender, no masses Extremities are nonedematous and both pedal pulses are normal. Neurologic exam is alert and oriented, no focal loss of strength or sensation Skin is without bruises or rashes Psychologically is without concerns for anxiety or depression Principal Diagnosis RIGHT SIDED OBSTRUCTING UPJ STONE, RENAL MASS Discharge Exam Constitutional WD/WN, vitals as above no acute distress Eyes PERRL, conjunctivae normal, anicteric sclerae ENMT external ear and nose normal, oropharynx normal Neck trachea midline, no thyromegaly Respiratory normal respiratory effort, lungs clear to auscultation Cardiovascular RRR, no murmur, no edema Gastrointestinal (Abdomen) normal bowel sounds, soft, nontender, no hepatosplenomegaly Musculoskeletal muscle wasting b/l LE -- also with charcot maxx tooth -- incision L medial ankle from prior fusion Skin warm, dry Neurologic patellar DTR's 2+ bilat, sensation intact Psychiatric A+Ox3, euthymic affect Lymphatic no cervical or axillary lymphadenopathy Discharge Data Allergies Allergy/AdvReac Type Severity Reaction Status Date / Time No Known Allergies Allergy Unknown Verified 02/27/20 08:23 Consultations 02/27/20 11:08 ED Decision to Admit Stat 02/27/20 13:10 Consult Urology Routine Procedures Performed Operation Date: 02/28/20 09:15 Actual Procedures p Cystoscopy, Destruction and Extraction of Bladder Stone, Right Ureteral Stent Placement(Right) - Denis Valerio, Ordered Studies 02/27/20 07:38 CT abd pelvis wo con Stat 02/27/20 13:10 MR abdomen wo/w con Routine 02/28/20 09:30 FL retrograde includes kub Routine Hospital Course (1) Renal stone: Admitted and found to have [id number] obstructing UPJ stone on CT A/P Nephrology consulted S/P cystoscopy with extractions and destruction of bladder stone with stent placement with Dr. Valerio on 02/27 Follow up with urology outpatient Sent with prescription for cipro (to complete 5 days), Reston and flomax (2) Renal mass: Renal mass on the right side. Patient aware of a renal cyst on the right side. Urine cytology pending MRI with 3.6 cm complex enhancing mass lesion arising from the upper pole of the right kidney, representing a significant change from studies dating back to 2013 and renal cell carcinoma is the diagnosis of exclusion Follow up with urology for further evaluation/biopsy (3) Diabetes mellitus type 2, uncontrolled: Patient typically takes glimepiride and metformin. Home medications held while inpatient and ISS/carb conservative diet Resumed home medications at discharge (4) Benign essential hypertension: Continued home propranolol 120mg daily (5) DVT prophylaxis: SCDs Did get 1x dose of heparin on admission Discharged home with follow up with Urology outpatient Total Time Total Time Spent Total Time Spent (In Minutes): 70 Discharge Plan Discharge Items Patient Disposition: Home - Self-Care Reason For Visit: RENAL COLIC,RENAL MASS Discharge Diagnosis: Kidney Stone, Renal Mass Condition on Discharge: Good Goals: You have been hospitalized for an urgent problem which required surgery. During your stay at [facility], we have made an effort to correct the problem that brought you to the hospital while keeping you as comfortable as possible. Surgery and medications were used to bring your condition under control and your discharge instructions will include directions for any medications you should take after leaving the hospital. Please make sure to follow the advice of your surgeon regarding follow up with the surgeon and with your primary care provider. Activity: Resume your previous activity Non-emergency contact: Primary Care Provider and Urologist Call non-emergency contact if: you have any medication questions, your pain is not controlled and you have a fever Follow-up/Referrals: Rex Stewart III, MD [Primary Care Provider] - Denis Valerio DO [Physician] - Diet: Carb Consistent or DM2 and Heart Healthy Addtl Attending Provider Instructions: You have been hospitalized for obstructing kidney stone. You were taken to the operating room with Dr. Valerio for removal of this stone and insertion of a stent. Dr. Valerio office will contact you regarding follow up of your stent as well as follow up regarding the renal mass seen on imaging. If you do not hear from them in the next day or so, please give their office a call at . You have been sent a short prescription of the following: * Ciprofloxacin --> 500mg by mouth twice daily for the next 4 days. This is an antibiotic for prevention as discussed * Flomax --> 0.4mg by mouth daily to help with urination * Reston --> 1 tablet by mouth every 4-6 hours as needed for pain. You may use Tylenol for all other pain, but please make sure not to exceed 3,000mg in a 24 hour period of time. Please note that the pain medication does h ave some Tylenol in it as well. Pain medications tend to worsen constipation. If you find yourself having increased constipation, please utilize an over the counter stool softener like Miralax or Colace. Please follow up with your primary care provider in the next week. Please return to the emergency room if you have any increased pain, fevers, difficulty urinating or for any other symptoms that are concerning for you. It has been a pleasure being a part of the medical team providing for you while you have been in the hospital. Take care! Pending Studies at Discharge: Yes Studies:: Stone Analysis Stand-Alone Forms: My [facility], Smoking Cessation Medications and DC Order Prescriptions: New tamsulosin [Flomax] 0.4 mg capsule 0.4 mg PO HS Qty: 4 RF: 0 ciprofloxacin HCl 500 mg tablet 500 mg PO BID 4 Days Qty: 8 RF: 0 hydrocodone-acetaminophen [Reston] 5-325 mg tablet 1 tab PO Q6H PRN (Reason: pain) Qty: 7 RF: 0 Continued (DME) blood-glucose meter [OneTouch UltraMini] kit See Dose Instructions .ROUTE .MEDSUPPLY Qty: 1 RF: 0 (DME) lancets [BD Ultra Fine Lancets] 33 gauge misc See Dose Instructions .ROUTE .MEDSUPPLY Qty: 100 RF: 0 glimepiride 2 mg tablet 2 mg PO QAM Qty: 90 RF: 3 (DME) Blood Glucose Test strip See Dose Instructions .ROUTE .MEDSUPPLY Qty: 200 RF: 5 propranolol 120 mg capsule,extended release 24 hr 120 mg PO QAM RF: 0 metformin 500 mg tablet extended release 24 hr 1,000 mg PO BIDM RF: 0 Discharge Orders: Discharge Order (Routine); Ordered 02/28/20 Ordered By: Rosita Peña/Other Patient Handouts: What is Hematuria? Admission Data Admit Date/Time: 02/27/20 11:19 Attending Provider: Rosita Barakat Admit Provider: Kali Quiroga Primary Care Provider: Rex Stewart III Other Providers: Kali Quiroga ; Denis Valerio Other Interventions: Discharge Summary Assessment (RN) Last Done: 02/28/20 16:51 DC Date/Time DO NOT enter until pt leaves facility: 02/28/20 17:25 Supervising Physician Co-Signing Physician Notes PA Supervision Note: I personally saw and examined the patient. I verified all rodriguez points and agree with MAICOL Geronimo with the following exceptions and/or additions: Patient had ureteral stent placed and stone destroyed today. He is doing very well. He is having some mild hematuria but is voiding after Hernandez catheter was removed. We discussed the mass on his right kidney and the need for further evaluation with urology. Vitals reviewed Gen: AAOx3, NAD HEENT: Anicteric sclerae, EOMI CV: RRR no mgr nl S1S2 Pulm: CTAB no wcr Abd: +BS soft NT ND no masses or hernias Ext: No edema, 2+ DP pulses, atrophy of the muscles from the knee down with high arches left greater than right, left ankle is fused with no range of motion Skin: No rashes, warm/dry Neuro: Full strength throughout 69-year-old male with history of DM 2, HTN, here with right-sided ureterolithiasis and hydronephrosis and also incidental note of possible renal cell carcinoma on the right kidney. Status post stent placement -DC to home with Flomax, oxycodone, Cipro -Needs outpatient follow-up with urology for stent removal, stone management, and further evaluation of renal mass. Stable for discharge Coding Level of Care Code D/C Day Management >30 mins Diagnoses Renal stone N20.0 Renal mass N28.89 Diabetes mellitus type 2, uncontrolled E11.65 Benign essential hypertension I10 DVT prophylaxis Z29.9
[2020-03-04 00:54] LABS: Component 2 DNR; Source BLADDER STONE
== END 2020-02-28 17:25 | disposition home or self-care (01) | DRG 660 ==
LOC: ED 07:24 → 3E 11:19 → SUATTDRO 11:19 → 3E 12:46

== ENCOUNTER 2020-05-15 05:08 | Inpatient (IN) ==
--- NOTE | 2020-05-08 15:39 | PAT Medication Instructions ---
Medication Instructions Date of Service May 08, 2020 Home Medications Medication Instructions Recorded blood-glucose meter #1 ea 05/28/19 lancets 33 gauge #100 ea 05/28/19 blood sugar diagnostic #200 ea 07/13/19 glimepiride 2 mg tablet 2 mg PO QAM #90 tab 01/07/20 glimepiride 2 mg tablet 2 mg PO QAM metformin 1,000 mg PO BIDM propranolol 120 mg PO HS acetaminophen [Tylenol Extra Strength] 500 mg PO UD PRN DO NOT take the morning of surgery glimepiride 2 mg tablet 2 mg PO QAM metformin 1,000 mg PO BIDM acetaminophen [Tylenol Extra Strength] 500 mg PO UD PRN Take evening before surgery metformin 1,000 mg PO BIDM propranolol 120 mg PO HS acetaminophen [Tylenol Extra Strength] 500 mg PO UD PRN (if needed) Other Notes If you have any questions please call us at [phone] or [phone] or [phone] or [phone]
--- NOTE | 2020-05-09 09:50 | Anesthesiology Consultation ---
Date of Service May 09, 2020 Assessment & Plan (1) Encounter for pre-operative examination: COVID Status: As of 05/09 assessment, patient denies travel to endemic area, known exposure/sick contacts, or symptoms of COVID19. Patient instructed that they and their household members must follow strict social distancing guidelines, wear a mask in public and avoid travel for 14 days prior to surgery. Preoperative COVID19 testing to be completed prior to surgery per surgeon's a rrangements. Patient made aware to self-isolate as much as possible between COVID testing and surgery. Chart Review Chart Review: Acceptable Risk for Surgery and Patient seen in Pre Admission Testing Teaching & Discussion Instructed NPO after midnight before surgery, except medications with 15 cc of water. Medication instructions provided according to the PAT guidelines. History Surgery Operation Date: 05/15/20 10:50 Proposed Procedures p Right Robotic Laparoscopic Assisted Parital Nephrectomy - Denis Valerio, DO Height/Weight Height: 6 ft 2 in Weight: 107.3 kg Allergies Allergy/AdvReac Type Severity Reaction Status Date / Time No Known Allergies Allergy Unknown Verified 05/08/20 13:31 Medications Home Medications Medication Instructions Recorded Confirmed Last Taken blood-glucose meter #1 ea 05/28/19 05/07/20 Unknown lancets 33 gauge #100 ea 05/28/19 05/07/20 Unknown blood sugar diagnostic #200 ea 07/13/19 05/07/20 Unknown glimepiride 2 mg tablet 2 mg PO QAM #90 tab 01/07/20 05/08/20 03/19/20 08:00 metformin 1,000 mg PO BIDM 02/27/20 05/08/20 03/19/20 17:00 propranolol 120 mg PO HS 02/27/20 05/08/20 03/19/20 17:00 acetaminophen [Tylenol Extra 500 mg PO UD PRN 03/13/20 05/08/20 03/18/20 08:00 Strength] Past Medical History Medical History (Updated 05/09/20 @ 09:41 by Mracelo Escudero) Nqupwly-Qgtzz-Cbjnc disease Diabetes mellitus type 2, uncontrolled NIDDM History of kidney stones had lithotripsy Right kidney mass Exercise / Class Metabolic Activity II 4-5 Yardwork/Stairs/Walk up hill Past Family History Family History Father Kidney stone Other Diabetes Denies family history of Ovarian cancer Prostate cancer Breast cancer Colorectal cancer Past Surgical History Surgical History (Updated 05/08/20 @ 13:33 by Tracey Foster RN) History of ankle surgery LEFT & RIGHT (HARDWARE BOTH) History of lithotripsy x many Past Anesthesia History No Hx of Anesthesia Complications and No Family Hx of Anesthesia Complications History of PONV No Hx of PONV and No Hx of Motion Sickness Social History Smoking Status: Current every day smoker tobacco type: cigarettes Smoking cigarettes per day: 1ppd Do You Dip or Chew Tobacco: No Hx Alcohol Use: Yes Alcohol type: beer alcohol intake frequency: a few times a month Hx Substance Use: No substance use type: does not use Review of Systems Pt denies any recent chest pain, shortness of breath, palpitations, cough, fever, URI, or uncontrolled acid reflux. Physical Exam Vital Signs BP: 112/75 P: 77bpm SPO2: 96% RA T: 98.0 F R: 16 ENMT Mouth: + dentures and + edentulous Thyromental Distance: > or= 3.5 Finger Breadths Mallampati Class: II Neck normal visual inspection, + thick neck and + facial hair (short addison); neck extension not limited Respiratory normal respiratory effort Auscultation: lungs clear to auscultation bilaterally Cardiovascular Rate/Rhythm: regular rate and regular rhythm Heart Sounds: no murmur Vessels: no carotid bruit Extremities: no edema Skin Soft tissue mass between shoulder blades. Testing Laboratory Results 05/09/20 09:52 05/09/20 09:52 Urine Color Yellow 05/09/20 09:52 Urine Appearance Clear (Clear) 05/09/20 09:52 Urine pH 6.0 (4.5-7.5) 05/09/20 09:52 Ur Specific Campus 1.018 (1.000-1.030) 05/09/20 09:52 Urine Protein Negative (Negative) 05/09/20 09:52 Urine Glucose (UA) Negative (Negative) 05/09/20 09:52 Urine Ketones Negative (Negative) 05/09/20 09:52 Urine Nitrite Negative (Negative) 05/09/20 09:52 Ur Leukocyte Esterase Trace (Negative) H 05/09/20 09:52 Urine WBC (Auto) 1-5 /hpf (0-5) 05/09/20 09:52 Urine RBC (Auto) 5-10 /hpf (0-4) H 05/09/20 09:52 U Hyaline Cast (Auto) 1-5 /lpf (0-5) 05/09/20 09:52 U Epithel Cells (Auto) 5-10 /lpf (0-5) H 05/09/20 09:52 Urine Bacteria (Auto) Negative (Negative) 05/09/20 09:52 Blood Type O Positive 05/09/20 09:52 Antibody Screen NEGATIVE 05/09/20 09:52 Electrocardiogram Date: 03/14/20 Findings: + NSR @ (79bpm with PACs) Otherwise normal EKG. Chest X-Ray Date: 03/14/20 Findings: + NAD
[2020-05-09 11:43] LABS: Basophils # (auto) 0.02 K/uL (0-0.2); Basophils % (auto) 0.2 %; Eosinophils # (auto) 0.44 K/uL (0-0.5); Eosinophils % (auto) 5.2 %; Hematocrit (blood only) 49.6 % (42-52); Hemoglobin 16.7 g/dL (14.0-18.0); Immature Granulocytes # (auto) 0.02 K/uL (0.00-0.02); Immature Granulocytes % (auto) 0.2 %; Lymphocytes # (auto) 2.68 K/uL (1.2-3.4); Lymphocytes % (auto) 31.8 %; Mean Corpuscular Hemoglobin 29.6 pg (25-34); Mean Corpuscular Hgb Conc 33.7 g/dL (32-36); Mean Corpuscular Volume 87.8 fL (80-100); Mean Platelet Volume 11.2 fL (7.4-10.4); Monocytes # (auto) 0.99 K/uL (0.11-0.59); Monocytes % (auto) 11.8 %; Neutrophils # (auto) 4.27 K/uL (1.4-6.5); Neutrophils % (auto) 50.8 %; Platelet Count 225 K/uL (130-400); RDW Coefficient of Variation 14.8 % (11.5-14.5); RDW Standard Deviation 47.4 fL (36.4-46.3); Red Blood Count 5.65 M/uL (4.7-6.1); White Blood Count 8.42 K/uL (4.8-10.8)
[2020-05-09 11:49] LABS: Appearance Urine Clear (Clear); Bacteria Urine Automated Negative (Negative); Bilirubin Urine Negative (Negative); Blood Urine Trace (Negative); Color Urine Yellow; Glucose Urine UA Negative (Negative); Ketones Urine Negative (Negative); Leukocyte Esterase Urine Trace (Negative); Nitrite Urine Negative (Negative); Protein Urine Negative (Negative); Specific Gravity Urine 1.018 (1.000-1.030); Urobilinogen Urine Negative (Negative)
[2020-05-09 11:52] LABS: BUN Creatinine Ratio 12.8 (10-20); Calcium 9.2 mg/dl (8.5-10.1); Creatinine Clr Calc Pharmacy 92.2 ml/min; Est GFR (African American) 89.2; Potassium 4.6 mmol/L (3.5-5.1)
[2020-05-15] MEDS ORDERED: ceFAZolin 2000MG 2,000 MG/15 ML SYR IV SCH (06:00)
[2020-05-15] MEDS ORDERED: LR 15ML/HR IV SCH (06:00)
[2020-05-15] MEDS ORDERED: BUPIVACAINE 0.5 % 5 MG/1 ML MPF 30ML VIAL ONE (06:57)
[2020-05-15] MEDS ORDERED: GELATIN SPONGE SZ 100 ONE (06:58)
[2020-05-15] MEDS ORDERED: DEXAMETHASONE SOD INJ 4 MG/ML VIAL ONE (07:06)
[2020-05-15] MEDS ORDERED: GLYCOPYRROLATE 0.2 MG/ML VIAL ONE (07:06)
[2020-05-15] MEDS ORDERED: NEOSTIGMINE METHYLSULFATE 5 MG/5 ML SYR ONE (07:06)
[2020-05-15] MEDS ORDERED: fentaNYL citrate 100 MCG/2 ML VIAL ONE ×3 (07:06→09:31)
[2020-05-15] MEDS ORDERED: LIDOCAINE HCL 2% 2 ML VIAL/AMP(20MG/ML) INFIL ONE (07:06)
[2020-05-15] MEDS ORDERED: MIDAZOLAM HCL 1 MG/ML 2ML VIAL ONE ×2 (07:06)
[2020-05-15] MEDS ORDERED: PROPOFOL IV EMULSION 10 MG/ML 20 ML VIAL IV ONE (07:06)
[2020-05-15] MEDS ORDERED: ONDANSETRON INJ 2 MG/ML 2 ML VIAL ONE (07:06)
--- NOTE | 2020-05-15 07:16 | History & Physical Bridge Note ---
Date of Service May 15, 2020 History & Physical Bridge Note I have examined the patient, reviewed the History & Physical and in the interval since the performance of the History & Physical I have noted the following changes of clinical significance: no changes noted
[2020-05-15] MEDS ORDERED: ONDANSETRON INJ 2 MG/ML 2 ML VIAL IV PRN ×2 (07:27→13:42)
[2020-05-15] MEDS ORDERED: LABETALOL HCL IV 5 MG/ML 20ML IV PRN (07:27)
[2020-05-15] MEDS ORDERED: ATROPINE SULFATE 0.1 MG/ML 10ML SYR IV PRN (07:27)
[2020-05-15] MEDS ORDERED: SURGICEL ABSORB HEMOSTAT 2IN X 14IN TOP ONE (09:26)
[2020-05-15] MEDS ORDERED: TISSEEL FIBRIN SEALANT 10ML TOP ONE (09:26)
[2020-05-15] MEDS ORDERED: DIGOXIN 500 MCG/2 ML AMP IV ONE (09:30)
[2020-05-15] MEDS ORDERED: CISATRACURIUM BESYLATE IV SOLN 2 MG/ML 10 ML VIAL IV ONE (10:47)
[2020-05-15] MEDS ORDERED: LARYING-O-JET KIT (LTA) ONE (10:48)
--- NOTE | 2020-05-15 11:29 | Post Operative Brief Note ---
PG Immediate Post Op with CF Date of Surgery May 15, 2020 Pre & Post Diagnosis Operation Date: 05/15/20 07:30 Pre-Op Diagnosis: Right Renal Mass Post-Op Diagnosis: Right Renal Mass I identified the patient and participated in the time-out.: Yes Procedure Operation Date: 05/15/20 07:30 Actual Procedures p Right Robotic Laparoscopic-Assisted Partial Nephrectomy(Right) - Denis Valerio, Surgeon Denis Valerio, II, DO Large Engine Assembler Keshia Estimated Blood Loss 50 Findings Consistent with Post-Op Diagnosis Specimens Specimen Description: A. Right renal mass Drains Hernandez Catheter and Corby-Blanco Drain (10mm FLat) Anesthesia Type General Complications none Disposition Disposition: Recovery Room Overlapping Procedure I was present for: the critical portions of procedure. I was immediately available: during the entire case. Back up surgeon: used during listed procedure.
--- NOTE | 2020-05-15 11:51 | Operative Report ---
PG Post Operative Report Pre & Post Diagnosis Operation Date: 05/15/20 07:30 Pre-Op Diagnosis: Right Renal Mass Post-Op Diagnosis: Right Renal Mass I identified the patient and participated in the time-out.: Yes Procedure Operation Date: 05/15/20 07:30 Actual Procedures p Right Robotic Laparoscopic-Assisted Partial Nephrectomy(Right) - Denis Valerio DO Surgeon Denis Valerio, II, DO Bull Riveter Lorraine and Benedict Estimated Blood Loss 50 Findings Consistent with Post-Op Diagnosis Upper pole posterior renal mass. Specimens Right renal mass Drains 9 Fr Flat drain 18 Fr Hernandez Anesthesia Type General Complications none Disposition Disposition: Recovery Room Indications Patient with right renal mass suspicious for malignancy. Risks and benefits discussed at length. Description of Procedure The patient was brought to the operative suite and placed under general endotracheal intubation anesthesia in the supine position. The patient was transferred to lateral position with the right flank exposed. The patient was placed into a flex'ed position and then placed into mild reverse Trendelenberg. At this point, the patient prepped and draped in the usual sterile fashion and a timeout was completed. Preoperative weight based antibiotics had been given. KATHY's and SCD's were placed on the patient's lower extremities. A catheter was placed by nursing using sterile technique. With the time out completed the patient was flexed and the skin was marked. The lateral port site was anesthetized. A small incision was made into the skin and subcutaneous tissues. A Varess needle was selected and placed. The needle was easily moved and it was irrigated and aspirated without any issues or concerns for placement. Insufflation commenced. The 12 mm camera port was placed. The abdominal cavity was further insufflated. The laparoscopic camera was placed and the abdominal cavity inspected. No concerning features were noted. At this point, the skin was marked for port placement and 8mm working ports were placed. The skin was anesthetized down to fascia and an approx 1cm incision was made to place the 2 x 8mm ports. Two 12 mm middle school assistant principal ports were also placed in similar fashion under direct visualization. The robot was positioned and docked. The camera was placed and all trocars were positioned under direct visualization. Nicky Peters was integral in port placement, camera utilization, and docking procedure. She also assisted during the extensive lysis of adhesions. She remained in sterile attire and then proceeded to assist the remainder of the case. The colon was mobilized medially to expose the retroperitoneum and the area assessed. Adhesions were freed to allow mobilization. A small amount of further adhesions were noted from the colon and were freed. These were dissected with blunt technique. Cautery was used to assist dissection and control bleeding. The retroperitoneal fat was assessed. Starting distally the retroperitoneum was dissected and care was taken to dissect down near the IVC. The gonadal vein and ureter were identified. This was then followed superiorly. Dissection stayed toward the midline along the IVC and the ureter and gonadal vein were followed up towards the renal hilum. The dissection was followed to the renal pelvis. The Renal Vein was identified and exposed. Dissection was taken further superior. The Renal Artery and Vein were then fully dissected, cleaned, and exposed. Clamp placement was assessed and good access was achieved. The perirenal fat anterior to the kidney was then dissected. The mass and surrounding tissues were exposed. The kidney was then further mobilized. The kidney had to be displaced to allow access to the posterior mass. The ultrasound probe was placed and the mass further examined. The edges were marked. The Vessels were assessed a final time. A bulldog clamp was placed on the artery and then on the vein. The kidney appropriately blanched. The previously marked margins were used to start the incision into the kidney. The mass was completely excised without evidence of penetrating into the capsule of the mass. The mass was quite deep and dissection was taken down towards the collecting system. The base of resection bed was assessed and small vessels were cauterized. The collecting system did appear to be opened in a small area. A barbed suture was selected and the nephrotomy closed. Care was taken to close the collecting system opening. 3-0 Vicryl sutures were then used to close the edges of the elliptical opening. Three Vicryl sutures were used to close and bolster the edges. At this point, the bulldog clamps were removed. Warm ischemia time, in total, was 14 minutes. The kidney was full assessed after removal of clamps. No bleeding or other major areas of concern. Weck and Hemolock clips were used to bolster and tightened to approximate the edges. The medial vicryl suture was clipped twice and passed a second time to improve closure of the medial edge. Surgicel hemostatic agent sheets were placed over the vessels and on the incised edge as well as under the liver. Hemostatic agents Tisseel and Floseal were also placed. Hemostatic agent was also placed on the vessels. No major bleeding or other issues. Gerota's tissues were replaced utilizing clips to cover the area. The excised mass was placed in an endocatch bag for removal. A Flat drain was placed through the lateral camera port and the port was removed. It was positioned in the gutter lateral to the liver and colon. This was secured with a silk 1-0 suture. The entire dissection space was inspected one final time. No bleeding or injuries or areas of concern were noted. No tumor or other concerning features were noted. At this point, the robot was undocked and moved away from the patient. The port sites were all assessed laparoscopically. The endoscopic bag was moved into the perimedian port. The superior 12 mm port site was closed with the Gabriel- Childs device and were closed with Vicryl suture. The other ports were assessed and no issues observed. The inferior middle school assistant principal port was opened further exposing fascia which was then opened in order to removed the mass within the bag. A 1-0 Vicryl suture was used to close fascia of the anterior and posterior rectus sheath. An 1-0 vicryl was used to approximate the marleny's fascia. The skin at each site was closed with a stapling device. The area was cleaned and bandages placed on each incision. The patient was cleaned and bandaged. The patient was moved back into the supine position The patient was cleaned, aroused from anesthesia, and transferred to the pacu in stable condition having tolerated the procedure well with no complications. I was present and participated in all aspects of the procedure. ANABELLA Roman was critical in the portions as mentioned above. I attest to the content of the Intraoperative Record and any orders documented therein. Any exceptions are noted below.
[2020-05-15 12:03] LABS: Basophils # (auto) 0.01 K/uL (0-0.2); Basophils % (auto) 0.1 %; Eosinophils # (auto) 0.06 K/uL (0-0.5); Eosinophils % (auto) 0.5 %; Hematocrit (blood only) 47.1 % (42-52); Immature Granulocytes # (auto) 0.06 K/uL (0.00-0.02); Immature Granulocytes % (auto) 0.5 %; Lymphocytes # (auto) 0.88 K/uL (1.2-3.4); Lymphocytes % (auto) 7.7 %; Mean Corpuscular Volume 88.2 fL (80-100); Monocytes # (auto) 0.31 K/uL (0.11-0.59); Monocytes % (auto) 2.7 %; Neutrophils # (auto) 10.06 K/uL (1.4-6.5); Neutrophils % (auto) 88.5 %; Platelet Count 194 K/uL (130-400); RDW Standard Deviation 47.8 fL (36.4-46.3); Red Blood Count 5.34 M/uL (4.7-6.1); White Blood Count 11.38 K/uL (4.8-10.8)
[2020-05-15] MEDS: HYDROmorphone INJ 1 MG/ML SYRINGE IV PRN ×8 (12:05→12:40)
[2020-05-15 12:19] LABS: BUN Creatinine Ratio 11.4 (10-20); Creatinine Clr Calc Pharmacy 95.9 ml/min; Est GFR (African American) 94.9; Est GFR (Non-African American) 81.9; Potassium 5.4 mmol/L (3.5-5.1)
[2020-05-15] MEDS ORDERED: ACETAMINOPHEN 1000 MG/100 ML IV IV ONE (12:39)
--- NOTE | 2020-05-15 12:39 | Anesthesiology Progress Note ---
Date of Service May 15, 2020 Anesthesia Post Procedure Vital Signs Vital Signs: Temp Pulse Pulse Resp BP Pulse Ox 05/15/20 12:30 82 15 143/74 H 93 05/15/20 12:20 77 18 140/80 93 05/15/20 12:10 80 17 133/83 94 05/15/20 12:00 76 20 131/83 97 05/15/20 11:50 80 24 138/85 97 05/15/20 11:44 36.9 C 89 23 147/82 H 98 05/15/20 05:43 36.9 C 76 18 133/99 95 Pain Intensity Abdomen: Pain Intensity: 8 Transfer of Care Handoff Completed per policy Notes Mental Status: alert / awake / arousable Patient Amnestic to Procedure: Yes Nausea / Vomiting: adequately controlled Pain: adequately controlled Airway Patency, RR, SpO2: stable & adequate BP & HR: stable & adequate Hydration State: stable & adequate Anesthetic Complications: no major complications apparent
[2020-05-15] MEDS ORDERED: ACETAMINOPHEN 1,000 MG/100 ML VIAL IV STA (12:43)
[2020-05-15] MEDS ORDERED: MoRPHine SULFATE 4 MG/ML 1 ML CARP\\VIAL IV PRN (13:42)
[2020-05-15] MEDS ORDERED: MoRPHine SULFATE 10 MG/ML CARP/VIAL IV PRN (13:42)
[2020-05-15] MEDS: LACTATED RINGER'S 1,000 ML IV SCH ×2 (14:00→20:55)
[2020-05-15] MEDS ORDERED: PHARMACY GLYCEMIC MGMT CONSULT PRN (14:01)
--- NOTE | 2020-05-15 14:11 | Pharmacy Report ---
Pharmacy Glycemic Short Note 2 - Date of Service May 15, 2020 - Glycemic Short BSG Results (Last 24 hours): 05/15/20 05/15/20 05/15/20 05:32 11:45 11:51 Glucose 179 H POC Glucose 143 H 186 H OUTPATIENT ANTIDIABETIC REGIMEN: * Metformin 1000 mg BID, glimeperide 2 mg * A1c 6.2% 04/08/2020 ASSESSMENT: * Patient is well-controlled on oral medications outpatient * No steroid administration documented * will started with weight based stress of 2 novolog, lantus scale for PM if BSG elevated PLAN FOR INPATIENT GLYCEMIC CONTROL: * Hold outpatient oral diabetes medications * Basal insulin * Lantus 0-20 units SQ based on BSG; see EMR for details * Bolus insulin * NovoLog per scale ACHS or Q6hrs while NPO * Goal Range: Low 110 mg/dL - High 140 mg/dL * Correction Factor: 25 mg/dL/unit * Nutritional / Prandial insulin per carb ratio of 1 unit per 8 grams CHO consumed
[2020-05-15] MEDS ORDERED: CARBOHYDRATES FOR HYPOGLYCEMIA PO PRN (14:15)
[2020-05-15] MEDS ORDERED: GLUCOSE 40% GEL 15 GM TUBE PO PRN (14:15)
[2020-05-15] MEDS ORDERED: DEXTROSE 50% 50 ML SYRINGE IV PRN (14:15)
[2020-05-15] MEDS ORDERED: GLUCOSE 10 TABS/TUBE PO PRN (14:15)
[2020-05-15] MEDS ORDERED: GLUCAGON FOR INJ 1 MG VIAL SQ PRN (14:15)
[2020-05-15] MEDS: INSULIN ASPART 100 UNITS/ML 3 ML PEN SC SCH ×3 (14:46→20:59)
[2020-05-15] MEDS ORDERED: MoRPHine SULFATE 2 MG/ML CARP IV PRN ×2 (15:25→15:26)
[2020-05-15] MEDS ORDERED: Nursing to Pharmacy Communication SCH (15:30)
[2020-05-15] MEDS: oxyCODONE HCL IR 5 MG TAB (IMMEDIATE RELEASE) PO PRN (15:41)
[2020-05-15] MEDS ORDERED: INSULIN GLARGINE SOLOSTAR 100 UNITS/ML 3 ML PEN SC SCH (16:30)
[2020-05-15] MEDS: ceFAZolin 2000MG 2,000 MG/15 ML SYR IV SCH ×2 (16:52→23:41)
[2020-05-15 18:10] LABS: Hematocrit (blood only) 46.7 % (42-52); Hemoglobin 15.6 g/dL (14.0-18.0); Mean Corpuscular Hemoglobin 29.5 pg (25-34); Mean Corpuscular Volume 88.4 fL (80-100); Mean Platelet Volume 10.4 fL (7.4-10.4); Platelet Count 198 K/uL (130-400); Red Blood Count 5.28 M/uL (4.7-6.1); White Blood Count 13.99 K/uL (4.8-10.8)
[2020-05-15 18:49] LABS: Mean Corpuscular Hgb Conc 33.4 g/dL (32-36)
[2020-05-15] MEDS: ACETAMINOPHEN 1,000 MG/100 ML VIAL IV SCH (20:51)
[2020-05-15] MEDS: PROPRANOLOL HCL 60 MG LA CAP PO SCH (20:52)
[2020-05-16] MEDS: oxyCODONE HCL IR 5 MG TAB (IMMEDIATE RELEASE) PO PRN ×2 (03:10→19:33)
[2020-05-16] MEDS: ACETAMINOPHEN 1,000 MG/100 ML VIAL IV SCH ×3 (05:29→21:16)
[2020-05-16] MEDS: LACTATED RINGER'S 1,000 ML IV SCH ×2 (05:31→15:35)
[2020-05-16 05:44] LABS: Basophils # (auto) 0.01 K/uL (0-0.2); Basophils % (auto) 0.1 %; Eosinophils # (auto) 0.09 K/uL (0-0.5); Eosinophils % (auto) 0.7 %; Hematocrit (blood only) 44.4 % (42-52); Hemoglobin 14.4 g/dL (14.0-18.0); Immature Granulocytes # (auto) 0.05 K/uL (0.00-0.02); Immature Granulocytes % (auto) 0.4 %; Lymphocytes % (auto) 15.5 %; Mean Corpuscular Hemoglobin 28.9 pg (25-34); Mean Corpuscular Hgb Conc 32.4 g/dL (32-36); Mean Platelet Volume 10.3 fL (7.4-10.4); Monocytes # (auto) 2.04 K/uL (0.11-0.59); Monocytes % (auto) 15.8 %; Neutrophils # (auto) 8.72 K/uL (1.4-6.5); Neutrophils % (auto) 67.5 %; Platelet Count 194 K/uL (130-400); RDW Coefficient of Variation 15.2 % (11.5-14.5); Red Blood Count 4.99 M/uL (4.7-6.1); White Blood Count 12.91 K/uL (4.8-10.8)
[2020-05-16 06:20] LABS: BUN Creatinine Ratio 11.1 (10-20); Calcium 8.9 mg/dl (8.5-10.1); Creatinine Clr Calc Pharmacy 107.2 ml/min; Est GFR (African American) 103.8; Est GFR (Non-African American) 89.5
[2020-05-16] MEDS: INSULIN ASPART 100 UNITS/ML 3 ML PEN SC SCH ×4 (08:34→21:22)
[2020-05-16] MEDS: INSULIN GLARGINE SOLOSTAR 100 UNITS/ML 3 ML PEN SC SCH ×2 (08:35→21:22)
[2020-05-16] MEDS: HEPARIN SOD 5,000 UNIT/0.5 ML VIAL SQ SCH ×2 (08:35→21:20)
--- NOTE | 2020-05-16 11:13 | Pharmacy Report ---
Pharmacy Glycemic Short Note 2 - Date of Service May 16, 2020 - Glycemic Short BSG Results (Last 24 hours): 05/15/20 05/15/20 05/15/20 11:45 11:51 17:40 Glucose 179 H POC Glucose 186 H 233 H 05/15/20 05/16/20 20:55 05:19 Glucose 125 H POC Glucose 178 H OUTPATIENT ANTIDIABETIC REGIMEN: * Metformin 1000 mg BID, glimeperide 2 mg * A1c 6.2% 04/08/2020 ASSESSMENT: 05/16 * Patient received 41 units of insulin yesterday, 20 of basal; 21 of prandial/correctional * BSG elevated at dinner yesterday but improved with Novolog * Fasting this AM 151; will split lantus dosing BID with scale for possible 25% increase from yesterday 05/15 * Patient is well-controlled on oral medications outpatient * No steroid administration documented * will start with weight based stress of 2 novolog, lantus scale for PM if BSG elevated PLAN FOR INPATIENT GLYCEMIC CONTROL: * Hold outpatient oral diabetes medications * Basal insulin * Lantus 0-15 units SQ based BID on BSG; see EMR for details * Bolus insulin * NovoLog per scale ACHS or Q6hrs while NPO * Goal Range: Low 110 mg/dL - High 140 mg/dL * Correction Factor: 25 mg/dL/unit * Nutritional / Prandial insulin per carb ratio of 1 unit per 8 grams CHO consumed
--- NOTE | 2020-05-16 11:24 | Urology Progress Note ---
Date of Service May 16, 2020 Assessment & Plan (1) Renal mass: Assessment Post right partial nephrectomy We will discontinue Hernandez Ambulate in [place] with assistance Advance diet as tolerated Admission and Anticipated Discharge Date Admission Date: May 15, 2020 Subjective Postop day #1 partial right nephrectomy Patient is afebrile vital signs are stable Complaining of some incisional pain and shoulder pain secondary to diaphragmatic irritation from the CO2 Hernandez catheter patent draining pink-tinged urine Tolerating clear liquids Not passing any flatus RADHA drain 200 cc past 24 hours Physical Exam Physical Exam: Physical exam Abdomen soft some incisional tenderness few bowel sounds Incisions clean and dry No shortness of breath No calf pain or edema Results & Data ([facility]) Vital Signs (Past 12 Hours) Vital Signs Temp Pulse Resp BP Pulse Ox Pulse Ox 05/16/20 07:43 36.9 C 74 16 126/74 94 05/16/20 03:14 36.9 C 68 16 132/88 95 05/15/20 23:45 96 Laboratory Results Laboratory Results - last 24 hr 05/15/20 05/15/20 05/15/20 11:45 11:51 11:51 WBC 11.38 H RBC 5.34 Hgb 16.0 Hct 47.1 MCV 88.2 MCH 30.0 MCHC 34.0 RDW Std Deviation 47.8 H RDW Coeff of Taylor 15.0 H Plt Count 194 MPV 10.0 Immature Gran % (Auto) 0.5 Neut % (Auto) 88.5 Lymph % (Auto) 7.7 Dixon % (Auto) 2.7 Eos % (Auto) 0.5 Baso % (Auto) 0.1 Neut # (Auto) 10.06 H Lymph # (Auto) 0.88 L Dixon # (Auto) 0.31 Eos # (Auto) 0.06 Baso # (Auto) 0.01 Immature Gran # (Auto) 0.06 H Sodium 139 Potassium 5.4 H Chloride 109 H Carbon Dioxide 23 Anion Gap 7.0 BUN 11 Creatinine 0.95 Est Cr Clr Drug Dosing 95.9 Est GFR ( Amer) 94.9 Est GFR (Non-Af Amer) 81.9 BUN/Creatinine Ratio 11.4 Glucose 179 H POC Glucose 186 H Calcium 9.0 05/15/20 05/15/20 05/15/20 17:40 17:53 20:55 WBC 13.99 H RBC 5.28 Hgb 15.6 Hct 46.7 MCV 88.4 MCH 29.5 MCHC 33.4 RDW Std Deviation 48.0 H RDW Coeff of Taylor 15.0 H Plt Count 198 MPV 10.4 Immature Gran % (Auto) Neut % (Auto) Lymph % (Auto) Dixon % (Auto) Eos % (Auto) Baso % (Auto) Neut # (Auto) Lymph # (Auto) Dixon # (Auto) Eos # (Auto) Baso # (Auto) Immature Gran # (Auto) Sodium Potassium Chloride Carbon Dioxide Anion Gap BUN Creatinine Est Cr Clr Drug Dosing Est GFR ( Amer) Est GFR (Non-Af Amer) BUN/Creatinine Ratio Glucose POC Glucose 233 H 178 H Calcium 05/16/20 05/16/20 05:19 05:19 WBC 12.91 H RBC 4.99 Hgb 14.4 Hct 44.4 MCV 89.0 MCH 28.9 MCHC 32.4 RDW Std Deviation 49.0 H RDW Coeff of Taylor 15.2 H Plt Count 194 MPV 10.3 Immature Gran % (Auto) 0.4 Neut % (Auto) 67.5 Lymph % (Auto) 15.5 Dixon % (Auto) 15.8 Eos % (Auto) 0.7 Baso % (Auto) 0.1 Neut # (Auto) 8.72 H Lymph # (Auto) 2.00 Dixon # (Auto) 2.04 H Eos # (Auto) 0.09 Baso # (Auto) 0.01 Immature Gran # (Auto) 0.05 H Sodium 138 Potassium 4.0 D Chloride 106 Carbon Dioxide 28 Anion Gap 5.0 BUN 9 Creatinine 0.85 Est Cr Clr Drug Dosing 107.2 Est GFR ( Amer) 103.8 Est GFR (Non-Af Amer) 89.5 BUN/Creatinine Ratio 11.1 Glucose 125 H POC Glucose Calcium 8.9 PG Care Time/CCT Total # of Minutes Spent Total Time Spent with Patient: Total time spent is greater than 50% in coordination of care (as documented) at patient's floor/unit and/or counseling patient: Coding Level of Care Code None Diagnoses Renal mass N28.89
[2020-05-16] MEDS: PROPRANOLOL HCL 60 MG LA CAP PO SCH (21:19)
[2020-05-17] MEDS: LACTATED RINGER'S 1,000 ML IV SCH (01:28)
[2020-05-17] MEDS: oxyCODONE HCL IR 5 MG TAB (IMMEDIATE RELEASE) PO PRN (02:59)
[2020-05-17 06:13] LABS: Basophils # (auto) 0.01 K/uL (0-0.2); Basophils % (auto) 0.1 %; Eosinophils # (auto) 0.12 K/uL (0-0.5); Hematocrit (blood only) 38.7 % (42-52); Hemoglobin 13.2 g/dL (14.0-18.0); Immature Granulocytes # (auto) 0.03 K/uL (0.00-0.02); Immature Granulocytes % (auto) 0.3 %; Lymphocytes # (auto) 1.75 K/uL (1.2-3.4); Lymphocytes % (auto) 14.6 %; Mean Corpuscular Hemoglobin 29.9 pg (25-34); Mean Corpuscular Hgb Conc 34.1 g/dL (32-36); Mean Corpuscular Volume 87.6 fL (80-100); Mean Platelet Volume 10.4 fL (7.4-10.4); Monocytes # (auto) 1.84 K/uL (0.11-0.59); Monocytes % (auto) 15.4 %; Neutrophils # (auto) 8.23 K/uL (1.4-6.5); Neutrophils % (auto) 68.6 %; Platelet Count 161 K/uL (130-400); RDW Standard Deviation 48.1 fL (36.4-46.3); Red Blood Count 4.42 M/uL (4.7-6.1); White Blood Count 11.98 K/uL (4.8-10.8)
[2020-05-17] MEDS: ACETAMINOPHEN 1,000 MG/100 ML VIAL IV SCH (06:15)
[2020-05-17 06:44] LABS: BUN Creatinine Ratio 10.6 (10-20); Calcium 8.3 mg/dl (8.5-10.1); Creatinine Clr Calc Pharmacy 149.4 ml/min; Est GFR (African American) 118.9; Est GFR (Non-African American) 102.6; Potassium 3.6 mmol/L (3.5-5.1)
[2020-05-17] MEDS ORDERED: INSULIN GLARGINE SOLOSTAR 100 UNITS/ML 3 ML PEN SC SCH (09:00)
[2020-05-17] MEDS: INSULIN ASPART 100 UNITS/ML 3 ML PEN SC SCH (09:12)
[2020-05-17] MEDS: HEPARIN SOD 5,000 UNIT/0.5 ML VIAL SQ SCH (09:56)
--- NOTE | 2020-05-17 09:56 | Pharmacy Report ---
Pharmacy Glycemic Short Note 2 - Date of Service May 17, 2020 - Glycemic Short BSG Results (Last 24 hours): 05/16/20 05/16/20 05/17/20 08:14 12:19 05:28 Glucose 112 H POC Glucose 151 H 148 H OUTPATIENT ANTIDIABETIC REGIMEN: * Metformin 1000 mg BID, glimeperide 2 mg * A1c 6.2% 04/08/2020 ASSESSMENT: 05/17: * Pt has received 29 units of insulin over the past 24hrs * 20 units of basal insulin with Lantus * 9 units of prandial with NovoLog * BSGs [phone] mg/dl (BSGs NOT crossing to EMR - IS and Lab working on issue) * AM fasting BSG trending downwards at 151 --> 131 mg/dl. Will decrease basal by 10% * No changes needed to CF/CR. Post-prandial BSGs are in goal range. * Diet advanced from clears to DMT2. 05/16 * Patient received 41 units of insulin yesterday, 20 of basal; 21 of pra ndial/correctional * BSG elevated at dinner yesterday but improved with Novolog * Fasting this AM 151; will split lantus dosing BID with scale for possible 25% increase from yesterday 05/15 * Patient is well-controlled on oral medications outpatient * No steroid administration documented * will start with weight based stress of 2 novolog, lantus scale for PM if BSG elevated PLAN FOR INPATIENT GLYCEMIC CONTROL: * Hold outpatient oral diabetes medications * Basal insulin: decrease by 10% * Lantus 9 units SQ BID * Bolus insulin * NovoLog per scale ACHS or Q6hrs while NPO * Goal Range: Low 110 mg/dL - High 140 mg/dL * Correction Factor: 25 mg/dL/unit * Nutritional / Prandial insulin per carb ratio of 1 unit per 8 grams CHO consumed
--- NOTE | 2020-05-17 12:56 | Discharge Summary ---
Date of Service May 17, 2020 Principal Diagnosis renal mass Discharge Exam AO x 3 AVSS nonlabored breathing soft incisions c/d/i juni removed and dressing applied ext without edema Discharge Data Allergies Allergy/AdvReac Type Severity Reaction Status Date / Time No Known Allergies Allergy Unknown Verified 05/15/20 05:41 Procedures Performed Operation Date: 05/15/20 07:30 Actual Procedures p Right Robotic Laparoscopic-Assisted Partial Nephrectomy(Right) - Denis Valerio DO Hospital Course (1) Renal mass: Patient underwent partial nephrectomy. He did well postoperatively. His diet was advanced as tolerted. His labs remained WNL. He was tolerating a regular diet. He received DVT prophylaxis. He was passing gas and ambulating at the time of discharge. He was voiding on his own. JUNI drain had tapered off to 35cc in 24 hours. The drain was removed. We discussed his restrictions post operatively. All questions were answered to his satisfaction. Total Time Total Time Spent Total Time Spent (In Minutes): 20 Discharge Plan Discharge Items Patient Disposition: Home - Self-Care Reason For Visit: Renal Mass Discharge Diagnosis: Renal Mass Condition on Discharge: Good Health Concerns: s/p partial nephrectomy Activity: Per Instructions section Lifting: No more than 10 pounds and No more than 25 pounds Bathing Comment: No tub baths or soaks. OK to shower Sexual Activity: Wait until after follow-up appointment Exercise/Sports: Wait until after follow-up appointment Driving/Machine Use: no driving x 2 weeks Non-emergency contact: Urologist Call non-emergency contact if: your pain is not controlled, you have a fever, your temperature is above 101, your wound has increased redness, your wound has increased drainage and your wound pain has increased Follow-up/Referrals: Rex Stewart III, MD [Primary Care Provider] - Denis Valerio DO [Physician] - 05/28/20 9:10 am Diet: Carb Consistent or DM2 Addtl Attending Provider Instructions: Please take all medications as prescribed and keep all follow-ups as scheduled. Please call our office at [phone] with any questions, concerns or need to r eschedule appointments for any reason. We are happy to assist you. Recovering at home: We recommend having someone with you for the first few days after surgery to help care for you. It is okay to shower tomorrow. Please avoid swimming, bathing or using hot tub until incisions are well healed. Avoid driving until you are not requiring pain medication any further. Walk at least a few times a day. Increase your distance, as you feel able. Stairs in your home are okay. Please avoid strenuous or sexual activity until your follow-up. We recommend using stool softener (i.e. Colace) to prevent constipation and straining, especially the first two weeks post operatively. Call [facility] at [phone] if you experience: Chest pain or trouble breathing (call [phone] or go to the hospital). Fever of 101F or higher Symptoms of infection at incision site, including redness or swelling, warmth, or bad-smelling drainage If you have catheter, and you notice: o Bloody urine or drainage that is dark red or has large clots (Please remember a small amount of blood is normal) o No drainage from the catheter for more than 6 hours o The catheter comes out of your bladder Pain that is not controlled with medicines Pending Studies at Discharge: Yes Studies:: Pathology Stand-Alone Forms: My [facility] Medications and DC Order Prescriptions: New oxycodone 5 mg Tablet 5 mg PO Q6H PRN (Reason: pain) 5 Days Qty: 20 RF: 0 Continued (DME) blood-glucose meter [OneTouch UltraMini] kit See Dose Instructions .ROUTE .MEDSUPPLY Qty: 1 RF: 0 (DME) lancets [BD Ultra Fine Lancets] 33 gauge misc See Dose Instructions .ROUTE .MEDSUPPLY Qty: 100 RF: 0 glimepiride 2 mg tablet 2 mg PO QAM Qty: 90 RF: 3 (DME) Blood Glucose Test strip See Dose Instructions .ROUTE .MEDSUPPLY Qty: 200 RF: 5 acetaminophen [Tylenol Extra Strength] 500 mg Tablet 500 mg PO UD PRN (Reason: Pain) RF: 0 propranolol 120 mg capsule,extended release 24 hr 120 mg PO HS RF: 0 metformin 500 mg tablet extended release 24 hr 1,000 mg PO BIDM RF: 0 Discharge Orders: Discharge Order (Routine); Ordered 05/17/20 Ordered By: Caridad Kumar Admission Data Admit Date/Time: 05/15/20 11:35 Attending Provider: Denis Valerio Admit Provider: Denis Valerio Primary Care Provider: Rex Stewart III Other Interventions: Discharge Summary Assessment (RN) Last Done: 05/17/20 12:30 Coding Level of Care Code D/C Day Management <30 mins Diagnoses Renal mass N28.89 Time Spent (min) 20
--- NOTE | 2020-05-29 10:48 | Coding Query ---
PATHOLOGY To promote full compliance with coding requirements relating to patient care, physician participation is requested in all cases of cement sack breaker uncertainty. Please assist us with the question(s) below: Please review the Pathology report and please document any relevant diagnosis(es) below: Diagnosis(es): Oncocytoma of kidney Thank you! Tamiko DELATORRE
== END 2020-05-17 12:43 | disposition home or self-care (01) | DRG 658 ==
LOC: ASU 05:08 → 3N 11:35